=== PATIENT | female | born 1995 | race African-American/Black ===

== ENCOUNTER 2019-04-04 01:38 | Emergency (ER) | payer OTHER ==
--- OUTSIDE RECORDS SUMMARY | 2019-04-04 01:41 | XMS REPORT | Summary of Care ---
:1995 Author Organization [facility] Address [address] [place] [id number] Care Team Providers Name Role Phone Jeffrey Graves CARD LACER JACQUARD Primary Care Provider Reason for Referral (Routine) Status Reason Specialty Diagnoses / Referred By Referred To Procedures Contact Contact New Request Maternal Diagnoses Supervision of high risk , antepartum Jeffrey Graves Medicine Procedures CONSULT MATERNAL MEDICINE ULTRASOUND R, CARD LACER JACQUARD [address] [place] [address] Reason for Visit Reason Comments Initial Visit Encounter Details Date Type Department Care Team Description 03/29/2019 Initial [facility]- Jeffrey Graves Supervision of high risk , antepartum (Primary Dx); Visit Leti RJOSUE Multiparity; [address] [facility] [address] [facility] Encounter for removal of intrauterine contraceptive device; [place], [place] Delicia Presence of intrauterine contraceptive device; [id number] [place], [place] IUD [phone] [facility] [phone] Allergies No Known Allergiesdocumented as of this encounter (statuses as of 03/29/2019) Medications Medication Sig Dispensed Refills Start Date End Date Status vit Take 1 Packet 30 Each 6 03/29/2019 Active 51-uehs-xhwtj-dha by mouth (SELECT-OB + DHA) 29 daily. mg iron-1 mg -250 mg combo packIndications: Supervision of high risk , antepartum metroNIDAZOLE Take 1 tablet 14 tablet 0 06/27/2018 03/29/2019 Discontinued (FLAGYL) 500 mg by mouth 2 tabletIndications: (two) times BV (bacterial daily with vaginosis) meals. naproxen 375 mg Take 1 tablet 60 tablet 1 06/27/2018 03/29/2019 Discontinued tabletIndications: by mouth 2 Back strain, initial (two) times encounter daily with meals. clotrimazole-betamet Apply to 15 g 1 08/19/2018 03/29/2019 Discontinued hasone (LOTRISONE) area(s) 2 creamIndications: (two) times Vaginal itching daily. fluconazole Take 1 tablet 1 tablet 1 08/27/2018 03/29/2019 Discontinued (DIFLUCAN) 200 mg by mouth tabletIndications: daily. Vaginal itching metroNIDAZOLE 500 mg Take 1 tablet 14 tablet 0 02/24/2019 03/29/2019 Discontinued tabletIndications: by mouth 2 BV (bacterial (two) times vaginosis) daily. documented as of this encounter (statuses as of 03/29/2019) Active Problems Problem Noted Date Multiparity 03/29/2019 Presence of intrauterine contraceptive device 03/29/2019 IUD 03/29/2019 Over weight 02/24/2019 MRSA (methicillin resistant staph aureus) culture positive 11/03/2017 Oral contraceptive use 10/07/2017 Boils 07/10/2017 Sickle cell trait 05/30/2016 Supervision of high risk , antepartum 03/26/2016 Encounter for removal of intrauterine contraceptive device 01/26/2016 Asthma 04/15/2013 Overview: Last Asthma attack was 3 years ago. 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 Estimated Date of Delivery Comments Yes 12/01/2019 Based on last menstrual period of 02/24/2019 documented as of this encounter (statuses as of 03/29/2019) Resolved Problems Problem Noted Date Resolved Date Presence of of 13.5 mg levonorgestrel-releasing intrauterine 11/19/201703/29 device (IUD) BV (bacterial vaginosis) 10/03/2016 03/29/2019 Depo-Provera contraceptive status 09/27/2016 10/07/2017 39 weeks gestation of 06/11/2016 09/27/2016 Vaginal discharge during in third trimester 03/26/2016 09/27/2016 Preexisting hypertension complicating , antepartum 03/20/20162016 Nausea and vomiting during prior to 22 weeks 01/26/2016 09/27/2016 gestation High-risk supervision, second trimester 01/26/2016 03/26/2016 Vaginal discharge during in second trimester 01/26/2016 05/30/2016 Dysuria 01/26/2016 03/29/2019 High-risk 04/15/2013 09/27/2016 Overview: 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 documented as of this encounter (statuses as of 03/29/2019) Immunizations Name Administration Dates Next Due Influenza Virus Vaccine (3+ yrs) 04/15/2013 Influenza Virus Vaccine - Whole 08/28/2010 Influenza Virus Vaccine Quad IM 3+ YRS 04/23/2016 Rubella 08/28/2010 Td 07/21/2007 Tdap 03/26/2016 Varicella (varivax)(chicken pox) 08/28/2010 documented as of this encounter Social History Tobacco Use Types Packs/Day Years Used Date Never Smoker Smokeless Tobacco: Never Used Alcohol Use Drinks/Week oz/Week Comments No 0 Standard drinks or equivalent 0.0 Estimated Date of Delivery Comments Yes 12/01/2019 Based on last menstrual period of 02/24/2019 Sex Assigned at Date Recorded Not on file Job Start Date Occupation Industry Not on file Not on file Not on file Travel History Travel Start Travel End No recent travel history available. documented as of this encounter Last Filed Vital Signs Vital Sign Reading Time Taken Comments Blood Pressure 123/82 03/29/2019 2:35 PM CDT Pulse 61 03/29/2019 2:35 PM CDT Temperature 36.3 C (97.4 F) 03/29/2019 2:35 PM CDT Respiratory Rate 16 03/29/2019 2:35 PM CDT Oxygen Saturation - - Inhaled Oxygen Concentration - - Weight 74.6 kg (164 lb 7 oz) 03/29/2019 2:35 PM CDT Height 165.1 cm (5' 5") 03/29/2019 2:35 PM CDT Body Mass Index 27.36 03/29/2019 2:35 PM CDT documented in this encounter Progress Notes Jeffrey Graves, CARD LACER JACQUARD - 03/29/2019 2:00 PM CDT Chief complaint: Chief Complaint Patient presents with Initial Visit HPI CC: Initial Visit Yulisa Fowler is a 23 year old, , Black or female. Patient's last menstrual period was 02/24/2019. She is 4w5d with an intrauterine . Her Estimated Date of Delivery: 12/01/19. She is being seen today for her first obstetrical visit. She has no complaints today. Patient reports IUD in place since 2018. She denies , FM contractions, LOF and bleeding today. Patient denies current or past physical, sexual or emotional abuse. OB History Para Term AB Living 4 3 3 3 SAB TAB Ectopic Multiple Live Births 3 # Outcome Date GA Lbr Elroy/2nd Weight Sex Delivery Anes PTL Lv 4 Current 3 Term 06/11/16 39w2d 7 lb 6.5 oz (3.36 kg) F VAGINAL EPI IMAN 2 Term 11/26/13 38w1d 7 lb 11 oz (3.487 kg) M NORMAL SPONT None N IMAN 1 Term 02/20/11 40w0d 09:00 6 lb 12 oz (3.062 kg) M Vag-Forceps EPIDURAL IMAN Histories OB History Para Term AB Living 4 3 3 3 SAB TAB Ectopic Multiple Live Births 3 # Outcome Date GA Lbr Elroy/2nd Weight Sex Delivery Anes PTL Lv 4 Current 3 Term 06/11/16 39w2d 7 lb 6.5 oz (3.36 kg) F VAGINAL EPI IMAN 2 Term 11/26/13 38w1d 7 lb 11 oz (3.487 kg) M NORMAL SPONT None N IMAN 1 Term 02/20/11 40w0d 09:00 6 lb 12 oz (3.062 kg) M Vag-Forceps EPIDURAL IMAN Past Medical History: Diagnosis Date Asthma 2004 no inhaler, no asmtha attack in years PID (pelvic inflammatory disease) Chlamydia / past infection Preexisting hypertension complicating , antepartum 03/20/2016 STD (sexually transmitted disease) 2011 Hx of Chlamydia Family History Problem Relation Age of Onset Asthma Mother High cholesterol Maternal Grandmother Diabetes Maternal Grandfather Cancer Maternal Uncle Arthritis NoFHx defects NoFHx Breast Cancer NoFHx Colon Cancer NoFHx Ovarian Cancer NoFHx Uterine Cancer NoFHx Depression NoFHx Genetic NoFHx Heart NoFHx Hypertension NoFHx Mental retardation NoFHx Neurological NoFHx Osteoporosis NoFHx Psychiatry NoFHx Other - see comments NoFHx Family Status Relation Name Status Mo Alive Fa Alive MGMo Alive MGFa Alive MUnc Alive NoFHx (Not Specified) Past Surgical History: Procedure Laterality Date INJECT EPIDURAL ANEST,LUMB,CONTINOUS 06/11/2016 OBSTETRICAL CARE,VAG DELIV ONLY 06/11/2016 Social History Socioeconomic History Marital status: Single Spouse name: Not on file Number of children: 2 Years of education: 12 Highest education level: Not on file Occupational History 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 Social Needs Financial resource strain: Not on file Food insecurity: Worry: Not on file Inability: Not on file Transportation needs: Medical: Not on file Non-medical: Not on file Tobacco Use Smoking status: Never Smoker Smokeless tobacco: Never Used Substance and Sexual Activity Alcohol use: No Alcohol/week: 0.0 oz Drug use: No Sexual activity: Yes Partners: Male control/protection: IUD Comment: Last intercourse 03/27/2019 Lifestyle Physical activity: Days per week: Not on file Minutes per session: Not on file Stress: Not on file Relationships Social connections: Talks on phone: Not on file Gets together: Not on file Attends restorationist service: Not on file Active member of club or organization: Not on file Attends meetings of clubs or organizations: Not on file Relationship status: Not on file Intimate partner violence: Fear of current or ex partner: Not on file Emotionally abused: Not on file Physically abused: Not on file Forced sexual activity: Not on file Other Topics Concern Service Not Asked Blood Transfusions Not Asked Caffeine Concern Not Asked Occupational Exposure Not Asked Hobby Hazards Not Asked Sleep Concern Not Asked Stress Concern Not Asked Weight Concern Not Asked Special Diet Not Asked Back Care Not Asked Exercise Not Asked Bike Helmet Not Asked Seat Belt Yes Self-Exams Not Asked Social History Narrative Denies domestic or physical violence at home, lives with children only. Denies cats in the home Rastafari Preference: Druze Social History Substance and Sexual Activity Sexual Activity Yes Partners: Male control/protection: IUD Comment: Last intercourse 03/27/2019 Genetic Screen Autism / Mental Retardation: No Robert Disease: No Congenital Heart Defect: No Cystic Fibrosis: No Down Syndrome: No Familial Dysautonomia: No Hemophilia or other Blood Disorders: No Asif Chorea: No Maternal Metabolic Disorder--specify (eg. Type 1 Diabetes, PKU): No Muscular Dystrophy: No Neural Tube Defect: No Recurrent Loss or a Stillbirth: No Sickle Cell Disease or Trait: No Darci Sachs: No Teratological Substances (specify type & strength/dose) since LMP: No Thalassemia: No Other Inherited Genetic or Chromosomal Disorder (specify): No No Significant History of Genetic Disorders: No Significant History of Genetic Disorders Labs Labs are pending. Radiology Radiology pending. Allergies Yulisa has No Known Allergies. Medications Yulisa currently has no medications in their medication list. Review of Systems Constitutional: Negative for activity change, appetite change, fatigue, unexpected weight change, weight gain and weight loss. HENT: Negative for sore throat. Eyes: Negative for visual disturbance. Respiratory: Negative for cough and shortness of breath. Breasts: Negative for discharge, mass, pain and unequal size. Cardiovascular: Negative for chest pain, palpitations and leg swelling. Gastrointestinal: Negative. Negative for abdominal pain, anal bleeding, blood in stool, constipation, diarrhea, nausea, rectal pain and vomiting. Genitourinary: Negative for bladder incontinence, dysuria, urgency, flank pain, vaginal bleeding, vaginal discharge, genital sores, vaginal pain and pelvic pain. Skin: Negative for color change and rash. Neurological: Negative. Negative for dizziness, syncope and headaches. Psychiatric/Behavioral: Negative for confusion, self-injury and sleep disturbance. The patient is not nervous/anxious. Hematological: Negative for cold intolerance and heat intolerance. Endocrine: Negative for hair loss, cold intolerance, heat intolerance, weight gain and weight loss. BP 123/82 (BP Location: Right arm, Patient Position: Sitting, BP CUFF SIZE: Adult Medium) | Pulse 61 | Temp 36.3 C (97.4 F) (Oral) | Resp 16 | Ht 5 ' 5" (1.651 m) | Wt 164 lb 7 oz (74.6 kg) | LMP 02/24/2019 | BMI 27.36 kg/m Pregravid BMI: Could not be calculated Physical Exam Vitals reviewed. Constitutional: She is oriented to person, place, and time. She appears well- developed, well-nourished and well-groomed. She has no deformities. Neck: No tenderness and no mass. No thyroid nodules and no thyromegaly palpated. Cardiovascular: Regular rate and rhythm. No murmur auscultated. Pulmonary/Chest: Breath sounds clear to auscultation. Normal inspiratory effort. Abdominal: Abdomen is soft. No mass palpated. No tenderness present. There is no guarding. Neuro/Psychiatric: She has a normal mood and affect. She is oriented to person, place, and time. Skin: Skin normal. No lesion and no rash present. Breast: Right breast exhibits no mass, no nipple discharge and no tenderness. Left breast exhibits no mass, no nipple discharge and no tenderness. Normal left breast and normal right breast Rectal: normal rectum External genitalia: Normal external genitalia appropriate for age. Normal hair distribution. No labial lesion. [employer] Mill Tender present for the exam: Laine Monte RN Vagina:Normal vagina. No lesion inspected. No abnormal vaginal discharge found. Cervix: Normal cervix. No lesion. No tenderness and no discharge present. IUD strings noted Uterus: Uterus is normal size and non-tender. 6cm Normal uterus Adnexa: Right adnexa without tenderness or mass. Left adnexa without tenderness or mass. Normal leftadnexa and normal right adnexa Anus/perineum: Normal perineum. PHYSICAL: General Exam: HEENT: Normal Thyroid: Normal Lymph Node: Normal Neurological: Normal Abdomen: Normal Skin: Normal Extremities: Normal Pelvic Exam: Vulva: Normal Vagina: Normal Lead [employer] Mill Tender present for the exam: Laine Monte RN present, no bleeding noted Cervix: Normal closed Uterus: 6cm Weeks Adnexa: Normal Spines: Average Sacrum: Concave Subpubic Arch: Normal Assessment/Plan Supervision of high risk , antepartum (primary encounter diagnosis) Multiparity Comment: Routine Visit Plan: POCT TEST, POCT URINALYSIS W/O SPECIFIC GRAVITY, GLUCOSE 1 HOUR POST PRANDIAL, CBC WITH DIFF, GC & CHLAMYDIA AMPLIFIED ASSAY, HEPATITIS B SURFACE ANTIGEN, HIV 1/2 AG-AB WITH REFLEX, WORKUP, BLOOD BANK, RUBELLA SCREEN (RONI) IGG, GALV ONLY - SYPHILIS IGG/IGM, URINE CULTURE, VZV ANTIBODY SCREEN, CBC WITH DIFFERENTIAL, CONSULT MATERNAL MEDICINE ULTRASOUND, vit 52-ozce-pwnre-dha (SELECT-OB + DHA) 29 mg iron-1 mg -250 mg combo pack Denies zika virus risk, signs and symptoms such as fever,rash,joint pain, conjunctivitis (red eyes), muscle pain, headaches; outside [place] travel to areas affected by zika, and FOB exposure to zika.Educated on use of mosquito repellent. Encounter for removal of intrauterine contraceptive device Presence of intrauterine contraceptive device IUD Comment: IUD in place, removal approved by Cole Montero, IUD removed, no complaints, patient visualized IUD out Plan: Patient given warnings risk. Return to clinic in 4 weeks. Discussed treatment options. Medications as ordered. Reviewed patient instructions and provided printed copy. This visit did not involve counseling and coordination that comprised more than 50% of the visit time. JOSUE Gilliam 03/29/2019 3:47 PM Jeffrey Son FNP - 03/29/2019 2:00 PM CDTIUD REMOVAL PROCEDURE NOTE Preoperative Diagnoses: IUD Removal The risks, benefits and alternatives were discussed. The patient voiced her understanding. She wished to proceed and an informed consent was obtained. Patient has been identified by name and and will be undergoing IUD removal. Patient, procedure and site have been confirmed by the following clinicians: JOSUE Gilliam and Laine Monte RN . Timeout performed by JOSUE Gilliam at 3:26p.m. Procedure: The patient is placed on the exam table in a lithotomy position. Vaginal speculum inserted. The cervix and IUD strings are visualized. IUD strings are grasped with the ring forceps and firmpressure applied to deliver the IUD through the cervical os. The patient experienced no cramping during removal,which resolved spontaneously prior to discharge. The vaginal speculum was removed. The patient tolerated the procedure well and there were no complications. Post-procedure instructions given. Patient verbalized understanding. Findings/Assessment IUD removed without any complaints Approved removal by Dr.. Galvan. Plan Encounter for removal of intrauterine contraceptive device Presence of intrauterine contraceptive device IUD Comment: IUD removed approved by Dr. Galvan Plan: no , complaints, warnings given. Return to clinic in 4 weeks. Discussed treatment options. Medications as ordered. Reviewed patient instructions and provided printed copy. JOSUE Gilliam 03/29/2019 3:41 PM Reuben Ricks RN - 03/29/2019 2:00 PM CDTPatient to have IUD removed due to positive test. Informed consent signed and obtained, risks reviewed, patient verbalized understanding. REUBEN MONTE RN 03/29/2019 3:33 PM Reuben Ricks RN - 03/29/2019 2:00 PM CDTPatient is 23 year old female here for current . Patient is . 1) Previous delivery methods Vaginal term deliveries. 2) Patient is experiencing cramping since 03/22/2019. 3) Patient is experiencing bleeding. 4) LMP 02/24/2019 5) Last Pap was: 02/24/2019 Results: Negative 6) Have you had a flu vaccine this season? No 7) PPD candidate? No 8) Patient complains of cramping and light spotting since 03/22/2019. Per patient report she has a Kathie IUD inserted 11/19/[address] Up. 9) Patient Denies history of physical, emotional, or sexual abuse. Patient states she currently feels safe at home. New ob packet given and discussed with patient. REUBEN MONTE RN 03/29/2019 3:06 PM documented in this encounter Plan of Treatment Date Type Specialty Care Team Description 04/26/2019 Routine Visit OB Satellites Jeffrey Graves FNP [address] [place] [address] [phone] Name Type Priority Associated Diagnoses Order Schedule GLUCOSE 1 HOUR POST LAB Routine Supervision of high risk Ordered: 2018 PRANDIAL , antepartum CBC WITH DIFF LAB Routine Supervision of high risk Ordered: 03/29/2019 , antepartum GC & CHLAMYDIA AMPLIFIED LAB Routine Supervision of high risk Ordered: 03/2019 ASSAY , antepartum HEPATITIS B SURFACE LAB Routine Supervision of high risk Ordered: 2018 ANTIGEN , antepartum HIV 1/2 AG-AB WITH REFLEX LAB Routine Supervision of high risk Ordered: 03/2019 , antepartum WORKUP, BLOOD LAB Routine Supervision of high risk Ordered: 2018 BANK , antepartum RUBELLA SCREEN (RONI) IGG LAB Routine Supervision of high risk Ordered: , antepartum GALV ONLY - SYPHILIS LAB Routine Supervision of high risk Ordered: 2018 IGG/IGM , antepartum URINE CULTURE LAB Routine Supervision of high risk Ordered: 03/29/2019 , antepartum VZV ANTIBODY SCREEN LAB Routine Supervision of high risk Ordered: 2018 , antepartum CBC WITH DIFFERENTIAL LAB Routine Supervision of high risk Ordered: 2018 , antepartum Health Maintenance Due Date Last Done Comments HPV VACCINES (1 - Female 2008 3-dose series) VARICELLA VACCINES (2 of 2 - 09/25/2010 08/28/2010 13+ 2-dose series) INFLUENZA VACCINE (#1) 2019 04/23/2016, 04/15/2013, 08/28/2010 PAP SMEAR 02/24/2022 02/24/2019, 12/04/2017 DTaP,Tdap,and Td Vaccines (3 03/26/2026 03/26/2016, - Td) 07/21/2007 PNEUMOCOCCAL 0-64 YEARS Aged Out No longer eligible based COMBINED SERIES on patient's age to complete this topic documented as of this encounter Procedures Procedure Name Priority Date/Time Associated Diagnosis Comments POCT URINALYSIS W/O Routine 03/29/2019 2:45 Supervision of high Results for this SPECIFIC GRAVITY PM CDT risk , procedure are in antepartum the results section. POCT TEST Routine 03/29/2019 2:36 Supervision of high Results for this PM CDT risk , procedure are in antepartum the results section. documented in this encounter Results POCT URINALYSIS W/O SPECIFIC GRAVITY (03/29/2019 2:45 PM CDT) POCT PH U 5 5 - 8 mg/dl POCT U LEUK EST 1+ Negative - Negative POCT U NIT Neg Negative - Negative POCT U PROT Trace Negative - Negative POCT U GLU Neg Negative - Negative POCT U KETONE None Negative - Negative POCT U BLD 250 Negative - Negative Specimen Urine - URINE, CLEAN CATCH POCT TEST (03/29/2019 2:36 PM CDT) POCT PREG Positive On board controls acceptable Yes with C Line POCT PREG LOT # POCT PREG TEST DATE Specimen Urine - URINE, CLEAN CATCH documented in this encounter Visit Diagnoses Diagnosis Supervision of high risk , antepartum - Primary Multiparity Encounter for removal of intrauterine contraceptive device Presence of intrauterine contraceptive device IUD Other specified complication of , unspecified as to episode of care documented in this encounter documented as of this encounter
--- OUTSIDE RECORDS SUMMARY | 2019-04-04 01:41 | XMS REPORT | Summary of Care ---
:1995 Author Organization [facility] Address [address] [place] [id number] Care Team Providers Name Role Phone Mendy Adhikari Primary Care Provider Reason for Visit Reason Comments Well Woman Exam Encounter Details Date Type Department Care Team Description 02/24/[address] [facility]- Mendy Adhikari Well woman exam (Primary Dx); JUAN MANUEL Kelly IUD (intrauterine device) in place; [address] Over weight; [place], [place] SANT[place] A BV (bacterial vaginosis); [id number] [place] [address] Boil [phone] Allergies No Known Allergiesdocumented as of this encounter (statuses as of 02/24/2019) Medications Medication Sig Dispensed Refills Start Date End Date Status metroNIDAZOLE (FLAGYL) Take 1 tablet by 14 tablet 0 06/27/2018 Active 500 mg mouth 2 (two) tabletIndications: BV times daily with (bacterial vaginosis) meals. naproxen 375 mg Take 1 tablet by 60 tablet 1 06/27/2018 Active tabletIndications: Back mouth 2 (two) strain, initial times daily with encounter meals. clotrimazole-betamethaso Apply to 15 g 1 08/19/2018 Active ne (LOTRISONE) area(s) 2 (two) creamIndications: times daily. Vaginal itching fluconazole (DIFLUCAN) Take 1 tablet by 1 tablet 1 08/27/2018 Active 200 mg mouth daily. tabletIndications: Vaginal itching metroNIDAZOLE 500 mg Take 1 tablet by 14 tablet 0 02/24/2019 Active tabletIndications: BV mouth 2 (two) (bacterial vaginosis) times daily. documented as of this encounter (statuses as of 02/24/2019) Active Problems Problem Noted Date Over weight 02/24/2019 Presence of of 13.5 mg levonorgestrel-releasing intrauterine device (IUD) 08/2017 MRSA (methicillin resistant staph aureus) culture positive 11/03/2017 Oral contraceptive use 10/07/2017 Boils 07/10/2017 BV (bacterial vaginosis) 10/03/2016 Sickle cell trait 05/30/2016 Dysuria 01/26/2016 Asthma 04/15/2013 Overview: Last Asthma attack was 3 years ago. 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 Immune to rubella 04/15/2013 Immune to varicella 04/15/2013 Flu vaccine need 04/15/2013 Pain pelvic 04/15/2013 documented as of this encounter (statuses as of 02/24/2019) Resolved Problems Problem Noted Date Resolved Date Depo-Provera contraceptive status 09/27/2016 10/07/2017 39 weeks gestation of 06/11/2016 09/27/2016 Vaginal discharge during in third trimester 03/26/2016 09/27/2016 High-risk supervision, third trimester 03/26/2016 09/27/2016 Preexisting hypertension complicating , antepartum 03/20/20162016 Nausea and vomiting during prior to 22 weeks 01/26/2016 09/27/2016 gestation Sterilization consult 01/26/2016 09/27/2016 High-risk supervision, second trimester 01/26/2016 03/26/2016 Vaginal discharge during in second trimester 01/26/2016 05/30/2016 High-risk 04/15/2013 09/27/2016 Overview: 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 documented as of this encounter (statuses as of 02/24/2019) Immunizations Name Administration Dates Next Due Influenza [...] No 0 Standard drinks or equivalent 0.0 Sex Assigned at Date Recorded Not on file Job Start Date Occupation Industry Not on file Not on file Not on file Travel History Travel Start Travel End No recent travel history available. documented as of this encounter Last Filed Vital Signs Vital Sign Reading Time Taken Comments Blood Pressure 121/84 02/24/2019 2:02 PM CDT Pulse 79 02/24/2019 2:02 PM CDT Temperature 36.2 C (97.1 F) 02/24/2019 2:02 PM CDT Respiratory Rate 16 02/24/2019 2:02 PM CDT Oxygen Saturation - - Inhaled Oxygen Concentration - - Weight 76.4 kg (168 lb 8 oz) 02/24/2019 2:02 PM CDT Height 165.1 cm (5' 5") 02/24/2019 2:02 PM CDT Body Mass Index 28.04 02/24/2019 2:02 PM CDT documented in this encounter Patient Instructions Patient InstructionsReuben Monte RN - 02/24/2019 1:15 PM CDT Understanding STDs When it comes to sex, nothing is risk-free. Any sexual contact with the penis, vagina, anus, or mouth can spread a sexually transmitted disease (STD). The only sure way to prevent STDs is abstinence (not having sex). But there are ways to make sex safer. Use a latex condom each time you have sex. And choose your partner wisely. Use condoms for safer sex If you have sex, latex condoms provide the best protection against STDs. Latex condoms stop the exchange of body fluids that carry certain STDs. They also limit contact with affected skin. Be aware though, a condom doesnt cover all skin. So, affected skin that is not covered can still transfer disease. But you re safer with a condom than without one. Use a condom even if you use other control. While control methods like the pill or IUD help prevent , they do not protect against STDs. Choose the right condom Condoms made of latex prevent disease best. If youre allergic to latex, use polyurethane condoms instead. Male condoms fit over the penis. Female condoms line the vagina. Before buying a condom, read the label to be sure it prevents disease. Some novelty condoms dont. The right lubricant helps Buy lubricated condoms or use lubricant. This provides greater comfort and reduces the risk of condom breakage. Use only water-based lubricants. Dont use oil, lotion, or petroleum jelly. They can weaken the condom, causing breakage. Also, you may want to choose lubricants without nonoxynol-9. Its now known that this spermicide does not prevent disease and may cause irritation. Use condoms correctly For condoms to work, they must be used the right way. Keep these tips in mind: Use a new latex condom each time you have sex. Slip the condom on the penis before any contact ismade. When ready to withdraw, hold the rim of the condom as the penis pulls out. This prevents the condom from slipping off. Check the expiration date before using a condom. Dont store condoms in places that can get hot, such as a car or a wallet that is carried in a back pocket. Get to know your partner Safer sex is a process. It involves getting to know your partner and making informed choices. Ask each other how many partners you have had in the past, and how many you have now. Find out if either ofyou has an STD. If you decide to have sex, use a condom each time. Dont stop using condoms unlessyoure sure neither of you has other partners and youve both been tested to confirm you donthave STDs. Then stay free of disease by having sex only with each other (monogamy). Keep your cool Dont let alcohol or drugs cloud your judgment. They could lead you to have sex with someone you wouldnt have chosen if you were sober. Or, you might forget to use a condom. If you do plan to havesex, keep a latex condom with you. Dont wait until youre in the heat of passion to try to findone. Consider abstinence The only way to be sure you wont get an STD is to abstain from sex. Abstinence is a choice that many people make at some point in their lives. Maybe you want to wait until you are sure youre ready before you have sex. Maybe youd like a break from the responsibilities of sex for a while. Or maybe you just want to know your partner better before taking the next step. Abstinence is a choice youcan make now to protect your future. Date Last Reviewed: 06/20/201619998689-[address] [place] [address], [place] [address]. All rights reserved. This information is not intended as a substitute for professional medical care. Always follow your healthcare professional's instructions. Prevention Guidelines,Women Ages 18 to 39 Screening tests and vaccines are an important part of managing your health. A screening test is doneto find possible disorders or diseases in people who don' t have any symptoms. The goal is to find a disease early so lifestyle changes can be made and you can be watched more closely to reduce the riskof disease, or to detect it early enough to treat it most effectively. Screening tests are not considered diagnostic, but are used to determine if more testing is needed. Health counseling is essential, too. Below are guidelines for these, for women ages 18 to 39. Talk with your healthcare provider tomake sure youre up-to- date on what you need. Screening Who needs it How often Alcohol misuse All women in this age group At routine exams Blood pressure All women in this age group Yearly checkup if your blood pressure is normal Normal blood pressure is less than 120/80 mm Hg If your blood pressure reading is higher than normal, follow the advice of your healthcare provider Breast cancer All women in this age group should talk with their healthcare providers about the needfor clinical breast exams (CBE)1 Clinical breast exam every 3 years1 Cervical cancer Women ages 21 and older Women between ages 21 and 29 should have a Pap test every 3 years; women between ages 30 and 65 are advised to have a Pap test plus an HPV test every 5 years Chlamydia Sexually active women ages 25 and younger, and women at increased risk for infection (suchas having multiple sex partners) Every year if you're at risk or have symptoms Depression All women in this age group At routine exams Type 2 diabetes, prediabetes All women with no symptoms who are overweight or obese and have 1 or more other risk factors for diabetes At least every 3 years. Also, testing for diabetes during after the 24th week. Type 2 diabetes, prediabetes All women diagnosed with gestational diabetes Lifelong testing every 3 years Type 2 diabetes All women with prediabetes Every year Gonorrhea Sexually active women at increased risk for infection At routine exams Hepatitis C Anyone at increased risk At routine exams HIV All women should be tested at least once for HIV between the ages of 13 and 64 At routine exams.Those with risk factors for HIV should be tested at least annually. Obesity All women in this age group At routine exams Syphilis Women at increased risk for infection should talk with their healthcare provider At routineexams Tuberculosis Women at increased risk for infection should talk with their healthcare provider Ask your healthcare provider Vision All women in this age group At least 1 complete exam in your 20s, and 2 in your 30s Vaccine2 Who needs it How often Chickenpox (varicella) All women in this age group who have no record of this infection or vaccine 2doses; the second dose should be given 4 to 8 weeks after the first dose Hepatitis A Women at increased risk for infection should talk with their healthcare provider 2 dosesgiven at least 6 months apart Hepatitis B Women at increased risk for infection should talk with their healthcare provider 3 dosesover 6 months; second dose should be given 1 month after the first dose; the third dose should be given at least 2 months after the second dose and at least 4 months after the first dose Haemophilus influenzaeType B (HIB) Women at increased risk for infection should talk with their healthcare provider 1 to 3 doses Human papillomavirus (HPV) All women in this age group up to age 26 3 doses; the second dose should be given 1 to 2 months after the first dose and the third dose given 6 months after the first dose Influenza (flu) All women in this age group Once a year Measles, mumps, rubella (MMR) All women in this age group who have no record of these infections or vaccines 1 or 2 doses Meningococcal Women at increased risk for infection should talk with their healthcare provider 1 or more doses Pneumococcal conjugate vaccine (PCV13)and pneumococcal polysaccharide vaccine(PPSV23) Women at increased risk for infection should talk with their healthcare provider PCV13: 1 dose ages 19 to 65 (protects against 13 types of pneumococcal bacteria) PPSV23: 1 to2 doses through age 64, or 1 dose at 65 or older (protects against 23 types of pneumococcal bacteria) Tetanus/diphtheria/pertussis (Td/Tdap) booster All women in this age group Td every 10 years, or a one-time dose of Tdap instead of a Td booster after age 18 , then Td every 10 years Counseling Who needs it How often BRCA gene mutation testing for breast and ovarian cancer susceptibility Women with increased risk for having gene mutation When your risk is known Breast cancer and chemoprevention Women at high risk for breast cancer When your risk is known Diet and exercise Women who are overweight or obese When diagnosed, and then at routine exams Domestic violence Women at the age in which they are able to have children At routine exams Sexually transmitted infection prevention Women who are sexually active At routine exams Skin cancer Prevention of skin cancer in fair-skinned adults At routine exams Use of tobacco and the health effects it can cause All women in this age group Every visit 1 According to the ACS, women ages 20 to 39 years should have a clinical breast exam (CBE) as part of their routine health exam every 3 years. Breast self- exams are an option for women starting in their 20s.But the USPSTF does not recommend CBE. Date Last Reviewed: 04/20/201719991716-7254 [employer]. [address] [place] [address]. All rights reserved. This information is not intended as a substitute for professional medical care. Always follow your healthcare professional's instructions. Understanding HIV and AIDS If you know how HIV (human immunodeficiency virus) can get into your body and what happens once its there, youll be better prepared to protect yourself or others against this virus. A person withHIV can look and feel perfectly healthy. But that person can give HIV to others as soon as he or sheis infected with the virus. Note: Having unsafe or unprotected sex or sharing needles put you at risk for HIV. Talk with your healthcare provider about ways to protect yourself or a loved one from getting HIV. How HIV enters the body HIV is carried in semen, vaginal fluid, blood, and breast milk. During sex, HIV can enter the body through the fragile tissue that lines the vagina, penis, anus,and mouth. During drug use, tattooing, or body piercing, the virus can enter the bloodstream through a shared needle. A mother who has HIV can infect her child during childbirth and through . How HIV infection progresses After HIV enters the body, it attacks the immune system in stages. A person with HIV can infect others once the virus enters the bloodstream. HIV with no symptoms. A person with HIV may have no symptoms for years. A positive blood test for HIV antibodies 6 weeks to 6 months after HIV enters the body may be the only sign of infection. HIV with symptoms.Some people develop an illness similar to mononucleosis (or "mono") 2 to 4 weeksafter the virus enters the body. Symptoms may include swollen lymph glands, chills, fever, night sweats, weakness, weight loss, skin rashes, mouth ulcers, or sore throat. Symptoms may be mild at first and then slowly go away. In a very few individuals, symptoms may get progressively worse and last forlonger and longer periods. AIDS. AIDS is the last stage of HIV infection. Diseases and cancers begin to overcome the body. It is these diseases, not the virus itself, that cause . HIV may also attack the brain and nervous system, causing seizures and loss of memory and body movement. Date Last Reviewed: 05/21/201619993446-[address] [employer] [place] [address]. All rights reserved. This information is not intended as a substitute for professional medical care. Always follow your healthcare professional's instructions. Clinical Breast Exam Many health organizations recommend a yearly clinical breast exam. This exam may be done by a senior instrumentation engineer, family healthcare provider, nurse practitioner, nurse bilingual customer service, or specially trained nurse. Yearly breast exams help tomake surethat breast conditions are found early. Your healthcare providers role A healthcare professional knows the tests and follow-up care needed if a problem is found. Your clinical exam is also a great time to ask questions about breast self-exams. You can find out if yourechecking your breasts in the best way. Or you may want to ask how , breast implants, or breast reduction surgery affect the way you should check your breasts. Diagnostic tests If a clinical exam reveals a breast change, you may have other tests to find out more. These tests may include: Mammography. A low-dose X-ray of your breast tissue. Ultrasound. An imaging test that uses sound waves to create images of your breast. Biopsy. A small amount of breast tissue is removed by needle or by a cut ( incision). The tissue is then checked under a microscope. Guidelines for having clinical breast exams The [place] [employer] recommends that starting at age 29, you should have a clinical breast exam every 1 to 3 years. After age 40, have a clinical breast exam each year. If youre at higher risk for breast cancer, you may need exams more often. Risk factors for breast cancer may include: Being over 50 or postmenopausal Having a family history of breast cancer Having the BRCA1 or BRCA2 gene mutation or certain other gene mutations Having more menstrual periods due to starting menstruation early(before age 12) or having a late menopause (after age 55) Having no pregnancies Having a first after age 30 Being obese Having a history of radiation treatment to your chest area Exposure to FIDENCIO during your mother's Not being active Drinking too much alcohol Having dense breast tissue Taking hormone therapy after menopause Other health organizations have different recommendations. Talk with your healthcare provider about what is best for you. Date Last Reviewed: 02/18/201719996134-[address] [employer] [place] [address], [place] [address]. All rights reserved. This information is not intended as a substitute for professional medical care. Always follow your healthcare professional's instructions. Breast Health: Breast Self-Awareness What is breast self-awareness? Breast self-awareness is knowing how your breasts normally look and feel. Your breasts change as yougo through different stages of your life. So its important to learn what is normal for your breasts. Breast self-awareness helps you notice any changes in your breasts right away. Report any changesto your healthcare provider. Why is breast self-awareness important? Many experts now say that women should focus on breast self-awareness instead of doing a breast self-examination (BSE). These experts include the [place] [employer], the U.S. Preventive Services Task Force, and the [place] [employer]. Some experts even advise notteaching women to do a BSE. Thats because research hasnt shown a clear benefit to doing BSEs. Breast self-awareness is different than a BSE. Breast self-awareness isnt about following a certain method and schedule. Its about knowing what's normal for your breasts. That way you can notice even small changes right away. If you see any changes, report them to your healthcare provider. Changes to look for Call your healthcare provider if you find any changes in your breasts that concern you. These changes may include: A lump Nipple discharge other than breastmilk, especially a bloody discharge Swelling A change in size or shape Skin irritation, such as redness, thickening, or dimpling of the skin Swollen lymph nodes in the armpit Nipple problems, such as pain or redness If you find a lump Contact your provider if you find lumpiness in one breast, feel something different in the tissue, or feel a definite lump. Sometimes lumpiness may be due to menstrual changes. But there may be reason for concern. Your provider may want to see you right away if you have: Nipple discharge that is bloody Skin changes on your breast, such as dimpling or puckering Its normal to be upset if you find a lump. But its important to contact your provider right away. Remember that most breast lumps are benign. This means they are not cancer. Date Last Reviewed: 02/18/201719998080-2160 [employer]. [address] [place] [address], [place] [address]. All rights reserved. This information is not intended as a substitute for professional medical care. Always follow your healthcare professional's instructions. Understanding VIEO MyPlate The USDA (U.S. Department of Agriculture) has guidelines to help you make healthy food choices. These are called MyPlate. MyPlate shows the food groups that make up healthy meals using the image of a place setting. Before you eat, think about the healthiest choices for what to put onto your plate or into your cup or bowl. To learn more about building a healthy plate, visit www.choosemyplate.gov. The food groups Fruits. Any fruit or 100% fruit juice counts as part of the Fruit Group. Fruits may be fresh, canned, frozen, or dried, and may be whole, cut-up, or pureed. Make half your plate fruits and vegetables. Vegetables. Any vegetable or 100% vegetable juice counts as a member of the Vegetable Group. Vegetables may be fresh, frozen, canned, or dried. They can be served raw or cooked and may be whole, cut-up, or mashed. Make half your plate fruits and vegetables. Grains. All foods made from grains are part of the Grains Group. These include wheat, rice, oats,cornmeal, and barley such as bread, pasta, oatmeal, cereal, tortillas, and grits. Grains should be no more than a quarter of your plate. At least half of your grains should be whole grains. Protein. This group includes meat, poultry, seafood, beans and peas, eggs, processed soy products(like tofu), nuts (including nut butters), and seeds. Make protein choices no more than a quarter ofyour plate. Meat and poultry choices should be lean or low fat. Dairy. All fluid milk products and foods made from milk that contain calcium , like yogurt and cheese, are part of the Dairy Group. (Foods that have little calcium, such as cream, butter, and cream cheese, are not part of the group.) Most dairy choices should be low-fat or fat-free. Oils. These are fats that are liquid at room temperature. They include canola , corn, olive, soybean, and sunflower oil. Foods that are mainly oil include mayonnaise, certain salad dressings, and soft margarines. You should have only 5 to 7 teaspoons of oils a day. You probably already get this muchfrom the food you eat. Date Last Reviewed: 02/18/201719999803-9998 [employer] [address] [place] [address]. All rights reserved. This information is not intended as a substitute for professional medical care. Always follow your healthcare professional's instructions. Eating Heart-Healthy Foods Eating has a big impact on your heart health. In fact, eating healthier can improve several of your heart risks at once. For instance, it helps you manage weight, cholesterol, and blood pressure. Here are ideas to help you make heart- healthy changes without giving up allthe foods and flavors you love. Getting started Talk with your healthcare provider about eating plans, such as the DASH or Mediterranean diet. You may also be referred to a dietitian. Change a few things at a time. Give yourself time to get used to a few eating changes before adding more. Work to create a tasty, healthy eating plan that you can stick to for the rest of your life. Goals for healthy eating Below are some tips to improve your eating habits: Limit saturated fats and trans fats. Saturated fats raise your levels of cholesterol, so keep these fats to a minimum. They are found in foods such as fatty meats, whole milk, cheese, and palm and coconut oils. Avoid trans fats because they lower good cholesterol as well as raise bad cholesterol. Trans fats are most often found in processed foods. Reduce sodium (salt) intake. Eating too much salt may increase your blood pressure. Limit your sodium intake to 2,300 milligrams (mg) per day(the amount in 1 teaspoon of salt), or less if your healthcare provider recommends it. Dining out less often and eating fewer processed foods are two great ways to decrease the amount of salt you consume. Managing calories. A calorie is a unit of energy. Your body katz calories for fuel, but if you eat more calories than your body katz, the extras are stored as fat. Your healthcare provider can help you create a diet plan to manage your calories. This will likely include eating healthier foods as well as exercising regularly. To help you track your progress, keep a diary to record what you eat and how often you exercise. Choose the right foods Aim to make these foods suze of your diet. If you have diabetes, you may have different recommendations than what is listed here: Fruits and vegetables provide plenty of nutrients without a lot of calories. At meals, fill half your plate with these foods. Split the other half of your plate between whole grains and lean protein. Whole grains are high in fiber and rich in vitamins and nutrients. Good choices include whole-wheat bread, pasta, and brown rice. Lean proteins give you nutrition with less fat. Good choices include fish, skinless chicken, and beans. Low-fat or nonfat dairy provides nutrients without a lot of fat. Try low-fat or nonfat milk, cheese, or yogurt. Healthy fats can be good for you in small amounts. These are unsaturated fats , such as olive oil,nuts, and fish. Try to have at least 2 servings per week of fatty fish, such as salmon, sardines, mackerel, rainbow trout, and albacore tuna. These contain omega-3 fatty acids, which are good for your heart. Flaxseed is another source of a heart-healthy fat. More on heart-healthy eating Read food labels Healthy eating starts at the grocery store. Be sure to pay attention to food labels on packaged foods. Look for products that are high in fiber and protein, and low in saturated fat, cholesterol, and sodium. Avoid products that contain trans fat. And pay close attention to serving size. For instance, if you plan to eat two servings, double all the numbers on the label. Prepare food right A dotson part of healthy cooking is cutting down on added fat and salt. Look on the internet for lower-fat, lower-sodium recipes. Also, try these tips: Remove fat from meat and skin from poultry before cooking. Skim fat from the surface of soups and sauces. Broil, boil, bake, steam, grill, and microwave food without added fats. Choose ingredients that spice up your food without adding calories, fat, or sodium. Try these items: horseradish, hot sauce, lemon, mustard, nonfat salad dressings, and vinegar. For salt-free herbs and spices, try basil, cilantro, cinnamon, pepper, and lidia. Date Last Reviewed: 04/20/201719994814-[address] [place] [address], [place] [address]. All rights reserved. This information is not intended as a substitute for professional medical care. Always follow your healthcare professional's instructions. Levonorgestrel intrauterine device (IUD) Brand Names: Kyleena, LILETTA, Mirena, Kathie What is this medicine? LEVONORGESTREL IUD (MOODY voe nor kendrick trel) is a contraceptive ( control) device. The device is placed inside the uterus by a healthcare professional. It is used to prevent . This device can also be used to treat heavy bleeding that occurs during your period. How should I use this medicine? This device is placed inside the uterus by a health home care scheduler. Talk to your lieutenant colonel regarding the use of this medicine in children. Special care may be needed. What side effects may I notice from receiving this medicine? Side effects that you should report to your doctor or health home care scheduler as soon as possible: allergic reactions like skin rash, itching or hives, swelling of the face, lips, or tongue fever, flu-like symptoms genital sores high blood pressure no menstrual period for 6 weeks during use pain, swelling, warmth in the leg pelvic pain or tenderness severe or sudden headache signs of stomach cramping sudden shortness of breath trouble with balance, talking, or walking unusual vaginal bleeding, discharge yellowing of the eyes or skin Side effects that usually do not require medical attention (report to your doctor or health home care scheduler if they continue or are bothersome): acne breast pain change in sex drive or performance changes in weight cramping, dizziness, or faintness while the device is being inserted headache irregular menstrual bleeding within first 3 to 6 months of use nausea What may interact with this medicine? Do not take this medicine with any of the following medications: amprenavir bosentan fosamprenavir This medicine may also interact with the following medications: aprepitant armodafinil barbiturate medicines for inducing sleep or treating seizures bexarotene boceprevir griseofulvin medicines to treat seizures like carbamazepine, ethotoin, felbamate, oxcarbazepine, phenytoin, topiramate modafinil pioglitazone rifabutin rifampin rifapentine some medicines to treat HIV infection like atazanavir, efavirenz, indinavir, lopinavir, nelfinavir, tipranavir, ritonavir Britt's wort warfarin What if I miss a dose? This does not apply. Depending on the brand of device you have inserted, the device will need to be replaced every 3 to 5 years if you wish to continue using this type of control. Where should I keep my medicine? This does not apply. What should I tell my health care provider before I take this medicine? They need to know if you have any of these conditions: abnormal Pap smear cancer of the breast, uterus, or cervix diabetes endometritis genital or pelvic infection now or in the past have more than one sexual partner or your partner has more than one partner heart disease history of an ectopic or tubal immune system problems IUD in place liver disease or tumor problems with blood clots or take blood-thinners seizures use intravenous drugs uterus of unusual shape vaginal bleeding that has not been explained an unusual or allergic reaction to levonorgestrel, other hormones, silicone, or polyethylene, medicines, foods, dyes, or preservatives or trying to get breast-feeding What should I watch for while using this medicine? Visit your doctor or health home care scheduler for regular check ups. See your doctor if you or your partner has sexual contact with others, becomes HIV positive, or gets a sexual transmitted disease. This product does not protect you against HIV infection (AIDS) or other sexually transmitted diseases. You can check the placement of the IUD yourself by reaching up to the top of your vagina with clean fingers to feel the threads. Do not pull on the threads. It is a good habit to check placement after each menstrual period. Call your doctor right away if you feel more of the IUD than just the threads or if you cannot feel the threads at all. The IUD may come out by itself. You may become if the device comes out. If you notice that the IUD has come out use a backup control method like condoms and call your health care provider. Using tampons will not change the position of the IUD and are okay to use during your period. This IUD can be safely scanned with magnetic resonance imaging (MRI) only under specific conditions.Before you have an MRI, tell your healthcare provider that you have an IUD in place, and which type of IUD you have in place. NOTE:This sheet is a summary. It may not cover all possible information. If you have questions aboutthis medicine, talk to your doctor, pharmacist, or health care provider. Copyright 2018 [employer] Pap Does this test have other names? Pap smear, cervical cytology, Papanicolaou test, Pap smear test, vaginal smear technique What is this test? This test checks the cells from inside the cervix for any changes that could lead to cancer. The cervix is the lower part of a woman's uterus that opens into the vagina. This test is named after Ash Gutiérrez MD, one of the healthcare providers whodeveloped this technique of testing for cervical cancer. Why do I need this test? You may need this test as a screening test to look for cervical cancer or changes in cervical cells that might eventually lead to cancer. Major medical groups generally recommend that women get regularPap tests every 3 years starting at age 21. Getting a regular Pap test can be life-saving. Cervical cancer is one of the most serious types of cancer in women. If your test shows abnormal cells, your healthcare provider may be able to find and treat cervical problems right away, or stop cervical cancer before it becomes life-threatening. Pap tests can also diagnose serious infections and pelvic inflammation. What other tests might I have along with this test? You will likely have a pelvic exam along with this test. Depending on your age and other factors, your tissue samples may also be tested for human papillomavirus (HPV) infection at the same time your Pap test is done. Infection with some types of HPV puts you at risk for cervical cancer. If you have an abnormal Pap test result, your healthcare provider may order other tests. These may include: Colposcopy. Your cervix and vagina are looked at with a microscope called a colposcope, which magnifies any abnormal areas. Endocervical curettage. Cells are taken from the opening of your cervix with a spoon-shaped tool and looked at under a microscope. This may be done during the colposcopy. Biopsy. A small tissue sample is taken from your cervix and looked at under a microscope. This may be done during the colposcopy. What do my test results mean? Test results may vary depending on your age, gender, health history, the method used for the test, and other things. Your test results may not mean you have a problem. Ask your healthcare provider whatyour test results mean for you. Your results will either be normal or abnormal. If you get an abnormal result, this usually does notmean that you have cancer. It often means a minor cervical problem. Your healthcare provider may do another Pap test to confirm the initial results. Or he or she may recommend other tests such as colposcopy. Occasionally a lab test has a false-positive result. This means you do not have a cervical problem even though the test result shows you do. How is this test done? This test is done with a sample of cervical cells. For the test, you lie on your back with your knees bent and your feet in stirrups, then relax and spread your legs. As part of a pelvic exam, your healthcare provider first checks your vagina and reproductive organs for infections and health problems. Then yourprovider uses a device called a speculum to open the vagina. The provider examines your cervix and scrapes off a few cells from inside your cervix. Some women may have slight discomfort when the speculum is inserted. Does this test pose any risks? This test poses no known risks. What might affect my test results? Using vaginal lubricants, cleansers, contraceptives, or creams may mask your symptoms. Avoid using vaginal douches and abstain from sex for 2 days before an exam. Using these products or having sex maywash away or disguise abnormal cervical cells. How do I get ready for this test? It may seem like a good idea to wash up before having a Pap test, but this can actually erase the signs of a health problem. For accurate test results, avoid having sex or using tampons, douches, vaginal creams, deodorant sprays and powders, and contraceptive foams and jellies for 2 days before your exam. Don't have the test while you're menstruating. The ideal time to have a Pap test is 10 to 20 days after the first day of your last period. Be sure your healthcare provider knows about all medicines, herbs, vitamins, and supplements you aretaking. This includes medicines that don't need a prescription and any illicit drugs you may use. [id number] [employer]. [address] [place] [address], [place] [address]. All rights reserved. This information is not intended as a substitute for professional medical care. Always follow your healthcare professional's instructions. documented in this encounter Progress Notes Mendy Adhikari, WHCNP - 02/24/2019 1:15 PM CDT Chief complaint: Chief Complaint Patient presents with Well Woman Exam HPI: the patient is here today for WWE and contraceptive management. She reports she is doing well but states she has noticed some vaginal discharge for the past 3 weeks, associated symptoms include vaginal odor. She reports no new sexual partners, and she currently uses IUD for control. She agrees to STI testing today but declines the need for HIV testing today. Pt (denies) current or past physical, sexual or emotional abuse. Histories OB History Para Term AB Living 3 3 3 3 SAB TAB Ectopic Multiple Live Births 3 # Outcome Date GA Lbr Elroy/2nd Weight Sex Delivery Anes PTL Lv 3 Term 06/11/16 39w2d 7 lb 6.5 oz (3.36 kg) F VAGINAL EPI IMAN 2 Term 11/26/13 38w1d 7 lb 11 oz (3.487 kg) M NORMAL SPONT None N IMAN 1 Term 02/20/11 40w0d 09:00 6 lb 12 oz (3.062 kg) M Vag-Forceps EPIDURAL IMAN Past Medical History: Diagnosis Date Asthma Does not use inhailer PID (pelvic inflammatory disease) Chlamydia / past infection Preexisting hypertension complicating , antepartum 03/20/2016 STD (sexually transmitted disease) Hx of Chlamydia Family History Problem Relation Age of Onset Asthma Mother High cholesterol Maternal Grandmother Diabetes Maternal Grandfather Arthritis NoFHx defects NoFHx Breast Cancer NoFHx Colon Cancer NoFHx Ovarian Cancer NoFHx Uterine Cancer NoFHx Cancer NoFHx Depression NoFHx Genetic NoFHx Heart NoFHx Hypertension NoFHx Mental retardation NoFHx Neurological NoFHx Osteoporosis NoFHx Psychiatry NoFHx Other - see comments NoFHx Family Status Relation Name Status Mo Alive Fa Alive MGMo Alive MGFa Alive NoFHx (Not Specified) Past Surgical History: Procedure Laterality Date INJECT EPIDURAL ANEST,LUMB,CONTINOUS 06/11/2016 OBSTETRICAL CARE,VAG DELIV ONLY 06/11/2016 Social History Socioeconomic History Marital status: Single Spouse name: Not on file Number of children: 2 Years of education: 12 Highest education level: Not on file Occupational History 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 Social Needs Financial resource strain: Not on file Food insecurity: Worry: Not on file Inability: Not on file Transportation needs: Medical: Not on file Non-medical: Not on file Tobacco Use Smoking status: Never Smoker Smokeless tobacco: Never Used Substance and Sexual Activity Alcohol use: No Alcohol/week: 0.0 oz Drug use: No Sexual activity: Yes Partners: Male control/protection: IUD Comment: Last intercourse 02/10/2019 Lifestyle Physical activity: Days per week: Not on file Minutes per session: Not on file Stress: Not on file Relationships Social connections: Talks on phone: Not on file Gets together: Not on file Attends sabianist service: Not on file Active member of [...] children only. Denies cats in the home Confucianist Preference: Restorationist Social History Substance and Sexual Activity Sexual Activity Yes Partners: Male control/protection: IUD Comment: Last intercourse 02/10/2019 Labs No new labs, Labs are pending. and No visits with results within 3 Month(s) from this visit. Latest known visit with results is: Urgent Care on 06/27/2018 Component Date Value POCT U SP GRAV 06/27/2018 1.015 POCT PH U 06/27/2018 5 POCT U LEUK EST 06/27/2018 trace POCT U NIT 06/27/2018 negative POCT U PROT 06/27/2018 trace POCT U GLU 06/27/2018 negative POCT U KETONE 06/27/2018 negative POCT U UROBILI 06/27/2018 normal POCT U BILI 06/27/2018 negative POCT U BLD 06/27/2018 negative POCT U COLOR 06/27/2018 yellow POCT U APPEAR 06/27/2018 clear Radiology No new radiology. Allergies Yulisa has No Known Allergies. Medications Yulisa has a current medication list which includes the following prescription(s) : metronidazole, fluconazole, clotrimazole-betamethasone, metronidazole, and naproxen. Review of Systems Constitutional: Negative. HENT: Negative. Eyes: Negative. Respiratory: Negative. Breasts: Negative. Cardiovascular: Negative. Gastrointestinal: Negative. Genitourinary: Negative. Musculoskeletal: Negative. Skin: Negative. Neurological: Negative. Psychiatric/Behavioral: Negative. Endocrine: Endocrine negative BP 121/84 (BP Location: Right arm, Patient Position: Sitting, BP CUFF SIZE: Adult Medium) | Pulse 79 | Temp 36.2 C (97.1 F) (Oral) | Resp 16 | Ht 5 ' 5" (1.651 m) | Wt 168 lb 8 oz (76.4 kg) | LMP 01/18/2019 (Approximate) | BMI 28.04 kg/m Pregravid BMI: Could not be calculated Physical Exam Vitals reviewed. Constitutional: She is oriented to person, place, and time. She appears well- developed and well-nourished. Her body habitus is normal. Neck: No tenderness and no mass. No thyroid nodules and no thyromegaly palpated. No neck adenopathy. Cardiovascular: Regular rate and rhythm. No gallop, no friction rub and no murmur auscultated. No peripheral edema present. Pulmonary/Chest: Breath sounds clear to auscultation. Normal inspiratory effort. Abdominal: Abdomen is soft. No mass palpated. No tenderness present. There is no hepatosplenomegaly,splenomegaly or hepatomegaly. There is no rigidity. No hernia palpated or inspected. Neuro/Psychiatric: She has a normal mood and affect. She is oriented to person, place, and time. Skin: No lesion, no rash and no ulceration present. Lymphadenopathy: No neck adenopathy present. No axillary adenopathy present. No inguinal adenopathy present. Breast: Right breast exhibits no mass, no nipple discharge and no tenderness. Left breast exhibits no mass, no nipple discharge and no tenderness. Breasts are symmetrical. Normal left breast and normalright breast Rectal: Rectal exam with normal anal tone. No mass, no external hemorrhoid and no internal hemorrhoid palpated or inspected. External genitalia: Normal external genitalia appropriate for age. Normal hair distribution. No labial lesion. Urethral meatus: Normal urethral meatus size, location and no lesion. No prolapse present. Normal urethral meatus Urethra: Normal urethra. No urethral tenderness, no mass and no urethral scarring palpated. Bladder: Bladder has no fullness, no mass palpated and no tenderness. Normal bladder Vagina:No lesion inspected. Normal estrogen effect. Normal support. Vaginal discharge found. +clue cells, +whiff test, +vaginal discharge Cervix: Normal cervix. No lesion. No tenderness and no discharge present. IUD strings present Uterus: Uterus is normal size, normal contour, normal position and non-tender. Normal uterus Adnexa: Right adnexa without tenderness, ovary enlargement or mass. Left adnexa without tenderness, ovary enlargement or mass. Normal left adnexa and normal right adnexa Anus/perineum: Normal perineum and normal anus. Assessment/Plan Return to clinic in 1year for WWE or sooner as needed Rubella/VZV: immune BMI 28 Td 2016 Pap Smear; today Gardasil: pending Mammogram:na Guaiac:na Colonoscopy:na Well woman exam (primary encounter diagnosis) Comment: routine Plan: PAP Smear-Liquid Based, GC & CHLAMYDIA AMPLIFIED ASSAy IUD (intrauterine device) in place Comment: pleased Plan: as needed mgmt Over weight Comment: see bmi Plan: limit weight gain and sensible diet. BV (bacterial vaginosis) Comment: +clue cells, +whiff test, +vaginal discharge Plan: metroNIDAZOLE 500 mg tablet Boil Comment: reports Plan: comfort measures suggested This visit did not involve counseling and coordination that comprised more than 50% of the visit time. JUAN MANUEL Bower 02/24/2019 3:16 PM Reuben Ricks RN - 02/24/2019 1:15 PM CDT23 year old presents to the clinic for wwe. 1) Previous BCM: IUD Kathie 11/2017 2) Desired BCM: Satisfied with Kathie 3) LMP: 01/18/2019 4) Last Ebro: 02/10/2019 5) Last Pap: 2014 Results: Negative per patient report 6) Tdap: 2015 7) Gardasil: Pt declines 8) C/O: Foul smelling vaginal discharge. 9) Patient denies history of physical, emotional, or sexual abuse. Patient states that she currently feels safe at home. REUBEN MONTE RN 02/24/2019 2:12 PM documented in this encounter Plan of Treatment Name Type Priority Associated Diagnoses Date/Time PAP Smear-Liquid Based LAB Routine Well woman exam 02/24/2019 2:57 PM CDT GC & CHLAMYDIA AMPLIFIED LAB Routine Well woman exam 02/24/2019 2:57 PM CDT ASSAY Health Maintenance Due Date Last Done Comments PNEUMOCOCCAL 0-64 YEARS COMBINED 1999 SERIES (1 of 3 - PCV13) HPV VACCINES (1 - Female 3-dose 2008 series) VARICELLA VACCINES (2 of 2 - 13+ 09/25/2010 08/28/2010 2-dose series) INFLUENZA VACCINE 03/21/2019 04/23/2016, 04/15/2013, 08/28/2010 PAP SMEAR 12/04/2020 12/04/2017 DTaP,Tdap,and Td Vaccines (3 - Td) 03/26/2026 03/26/2016, 07/21/2007 documented as of this encounter Results Not on filedocumented in this encounter Visit Diagnoses Diagnosis Well woman exam - Primary Routine general medical examination at a health care facility IUD (intrauterine device) in place Presence of intrauterine contraceptive device Over weight Overweight BV (bacterial vaginosis) Vaginitis and vulvovaginitis, unspecified Boil Carbuncle and furuncle of unspecified site documented in this encounter documented as of this encounter
--- OUTSIDE RECORDS SUMMARY | 2019-04-04 01:41 | XMS REPORT | Summary of Care ---
:1995 Author Organization [facility] Address [address] [place] [address] Care Team Providers Name Role Phone Pcp, Patient Does Not Have A Primary Care Provider Encounter Details Date Type Department Care Team Description 02/24/2019 Orders Only [facility] Doctor Unassigned, No [address] [facility] [place] [address] [address] [place] [address] Allergies No Known Allergiesdocumented as of this [...] 200 mg mouth daily. tabletIndications: Vaginal itching documented as of this encounter (statuses as of 02/24/2019) Active Problems Problem Noted Date Presence of of 13.5 mg levonorgestrel-releasing intrauterine device (IUD) 08/2017 MRSA (methicillin resistant staph aureus) culture positive 11/03/2017 Oral contraceptive use 10/07/2017 Boils 07/10/2017 BV (bacterial vaginosis) 10/03/2016 Sickle cell trait 05/30/2016 Dysuria 01/26/2016 Asthma 04/15/2013 Overview: Last Asthma attack was 3 years ago. 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 documented as of this encounter [...] of this encounter Last Filed Vital Signs Not on filedocumented in this encounter Plan of Treatment Health Maintenance Due Date Last Done Comments PNEUMOCOCCAL 0-64 YEARS COMBINED 1999 SERIES (1 of 3 - PCV13) HPV VACCINES (1 - Female 3-dose 2008 series) VARICELLA VACCINES (2 of 2 - 13+ 09/25/2010 08/28/2010 2-dose series) INFLUENZA VACCINE 03/21/2019 04/23/2016, 04/15/2013, 08/28/2010 PAP SMEAR 12/04/2020 12/04/2017 DTaP,Tdap,and Td Vaccines (3 - Td) 03/26/2026 03/26/2016, 07/21/2007 documented as of this encounter Procedures Procedure Name Priority Date/Time Associated Diagnosis Comments NO SHOW OR MISSED Routine 02/24/2019 1:37 PM APPOINTMENT POLICY CDT ACKNOWLEDGEMENT documented in this encounter Results Not on filedocumented in this encounter Insurance Payer Benefit Plan Subscriber ID Effective Phone Address Type / Group Dates HEALTHY HEALTHY xxxxxxxxx 2019-Derian [phone] [place] [place] [id number] [place] [address] CIGNA CIGNA II [id number] 2012-Derian HMO/PPO/POS nt documented as of this encounter
--- OUTSIDE RECORDS SUMMARY | 2019-04-04 01:41 | XMS REPORT | Summary of Care ---
:1995 Author Organization [facility] Address [address] [place] [address] Care Team Providers Name Role Phone Mendy Adhikari Primary Care Provider Reason for Visit Reason Comments Well Woman Exam Encounter Details Date Type Department Care Team Description 02/24/2019 Office Visit [facility]- Mendy Adhikari Well woman exam (Primary Dx); JUAN MANUEL Kelly IUD (intrauterine device) in place; [address] [place] [address] Over weight; [place], [place] SANTANA A BV (bacterial vaginosis); [address] [place] [address] Boil [phone] Allergies No Known Allergiesdocumented as of this [...] was 3 years ago. ICD10 Diagnosis Term Coffee Shop Aide Utility Immune to rubella 04/15/2013 Immune to [...] High-risk 04/15/2013 09/27/2016 Overview: ICD10 Diagnosis Term Coffee Shop Aide Utility Nausea & vomiting 04/15/2013 09/27/2016 Lump or mass in breast 04/15/2013 01/26/2016 Overview: Will refer to [facility] for evaluation. documented as of this [...] to protect your future. Date Last Reviewed: 06/20/201619998683-[address] [employer] [place] [address], [place] [address]. All rights reserved. This information is not [...] does not recommend CBE. Date Last Reviewed: 04/20/201719998451-6332 [employer]. [address] [place] [address]. All rights reserved. This information is not [...] memory and body movement. Date Last Reviewed: 05/21/201619996733-[address] [employer] [place] [address]. All rights reserved. This information is not intended as a substitute for professional medical care. Always follow your healthcare professional's instructions. Clinical Breast Exam Many health organizations recommend a yearly clinical breast exam. This exam may be done by a show host or hostess, family healthcare provider, nurse practitioner, nurse doll maker, or specially trained nurse. Yearly breast exams [...] Guidelines for having clinical breast exams The [employer]st[employer]ians [employer] Gynec[employer] recommends that [...] is best for you. Date Last Reviewed: 02/18/201719991412-[address] [employer] [place] [address], [place] [address]. All rights reserved. This information is not [...] breast self-examination (BSE). These experts include the [place] [employer], the U.S. Preventive Services Task Force, and the [place] [employer] of Obstetricians and Gynecologists. Some experts [...] they are not cancer. Date Last Reviewed: 02/18/201719998471-7876 [employer]. [address] [place] [address], [place] [address]. All rights reserved. This information is not intended as a substitute for professional medical care. Always follow your healthcare professional's instructions. Understanding [facility] My[employer]ate The USDA (U.S. Department of Agriculture) [...] the food you eat. Date Last Reviewed: 02/18/201719997397-2055 [employer]. [address] [place] [address]. All rights reserved. This information is not [...] cinnamon, pepper, and lidia. Date Last Reviewed: 04/20/201719996174-[address] [employer] [place] [address], [place] [address]. All rights reserved. This information is not [...] placed inside the uterus by a health foster care therapist. Talk to your lobster catcher regarding the use of this medicine in children. Special care may be needed. What side effects may I notice from receiving this medicine? Side effects that you should report to your doctor or health foster care therapist as soon as possible: allergic reactions like [...] attention (report to your doctor or health foster care therapist if they continue or are bothersome): acne [...] this medicine? Visit your doctor or health foster care therapist for regular check ups. See your doctor [...] pharmacist, or health care provider. Copyright 2018 [employer] Pap Does this test have other names? [...] and any illicit drugs you may use. [phone] [employer]. [address] [place] [address], [place] [address]. All rights reserved. 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 Denies cats in the home Adventist Preference: Congregation Social History Substance and Sexual Activity Sexual [...] with Kathie 3) LMP: 01/18/2019 4) Last [place]: 02/10/2019 5) Last Pap: 2014 Results: Negative [...]
--- OUTSIDE RECORDS SUMMARY | 2019-04-04 01:42 | XMS REPORT | Summary of Care ---
:1995 Author Organization [facility] Address [address] [place] [address] Care Team Providers Name Role Phone Jeffrey Graves Primary Care Provider Reason for Referral Radiology Services (Routine) Status Reason Specialty Diagnoses / Referred By Referred To Procedures Contact Contact New Request Diagnostic Diagnoses Lump or mass in breast Star, Radiology Procedures BI ULTRASOUND BREAST COMPLETE LEFT JOSUE Miles [address] [place] [address] (Routine) Status Reason Specialty Diagnoses / Referred By Referred To Procedures Contact Contact New Request Maternal Diagnoses Supervision of high risk , antepartum Jeffrey Graves Medicine Procedures CONSULT MATERNAL MEDICINE ULTRASOUND JOSUE Ferro [address] [place] [address] Reason for Visit Reason Comments Initial Visit Encounter Details Date Type Department Care Team Description [facility] Supervision of high risk , antepartum (Primary Dx); Visit JOSUE Cook Multiparity; [address] [place] [address] [facility] Encounter for removal of intrauterine contraceptive device; [place], [place] Delicia Presence of intrauterine contraceptive device; [address] [place], [place] IUD ; [phone] Lump or mass in breast [phone] Allergies No Known Allergiesdocumented as of this encounter (statuses as of 03/29/2019) Medications Medication Sig Dispensed Refills Start Date End Date Status vit Take 1 Packet 30 Each 6 03/29/2019 Active 72-ytyp-utdaa-dha by mouth (SELECT-OB + DHA) 29 daily. [...] was 3 years ago. 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 Denies cats in the home Tenriism Preference: Synagogue Social History Substance and Sexual Activity Sexual Activity Yes Partners: Male control/protection: IUD Comment: Last intercourse 03/27/2019 Genetic Screen Autism / Mental Retardation: No Robert Disease: No Congenital Heart Defect: No Cystic Fibrosis: No Down Syndrome: No Familial Dysautonomia: No Hemophilia or other Blood Disorders: No [place] Chorea: No Maternal Metabolic Disorder--specify (eg. Type [...] discharge and no tenderness. Left breast exhibits mass. Left breast exhibits no nipple discharge and no tenderness. Left Breast mass noted at 7 O'Clock, pain with palpation Normal left breast and normal right breast Rectal: normal rectum External genitalia: Normal external genitalia appropriate for age. Normal hair distribution. No labial lesion. Type Mapper present for the exam: Laine Monte RN [...] Normal Pelvic Exam: Vulva: Normal Vagina: Normal Type Mapper present for the exam: Laine Monte RN [...] WITH DIFFERENTIAL, CONSULT MATERNAL MEDICINE ULTRASOUND, vit 47-scni-qljjq-dha (SELECT-OB + DHA) 29 mg iron-1 mg [...] IUD out Plan: Patient given warnings risk. Lump or mass in breast Comment: left breast mass noted at 7 O'Clock on exam, pain with palpated, Plan: BI ULTRASOUND BREAST COMPLETE LEFT Return to clinic in 4 weeks. Discussed [...] Description 04/26/2019 Routine Visit [facility] Jeffrey Graves, MAINTENANCE ASSOCIATE [address] [place] [address] [phone] Name Type Priority Associated Diagnoses Date/Time GLUCOSE 1 HOUR POST LAB Routine Supervision of high risk 03/29/2019 3:44 PM PRANDIAL , antepartum CDT CBC WITH DIFF LAB Routine Supervision of high risk 03/29/2019 3:44 PM , antepartum CDT GC & CHLAMYDIA AMPLIFIED LAB Routine Supervision of high risk 03/29/2019 4 :26 PM ASSAY , antepartum CDT HEPATITIS B SURFACE LAB Routine Supervision of high risk 03/29/2019 3:44 PM ANTIGEN , antepartum CDT HIV 1/2 AG-AB WITH REFLEX LAB Routine Supervision of high risk 03/29/2019 3:44 PM , antepartum CDT RUBELLA SCREEN (RONI) LAB Routine Supervision of high risk 03/29/2019 3: 44 PM IGG , antepartum CDT GALV ONLY - SYPHILIS LAB Routine Supervision of high risk 03/29/2019 3:44 PM IGG/IGM , antepartum CDT URINE CULTURE LAB Routine Supervision of high risk 03/29/2019 4:26 PM , antepartum CDT VZV ANTIBODY SCREEN LAB Routine Supervision of high risk 03/29/2019 3:44 PM , antepartum CDT CBC WITH DIFFERENTIAL LAB Routine Supervision of high risk 03/29/2019 3: 44 PM , antepartum CDT Name Type Priority Associated Diagnoses Order Schedule WORKUP, BLOOD LAB Routine Supervision of high risk Ordered: 2018 BANK , antepartum BI ULTRASOUND BREAST IMAGING Routine Lump or mass in breast Expected: 03/29, COMPLETE LEFT Expires: 05/29/2020 Health Maintenance Due Date Last Done Comments [...] , unspecified as to episode of care Lump or mass in breast documented in this encounter documented as of this encounter
--- OUTSIDE RECORDS SUMMARY | 2019-04-04 01:42 | XMS REPORT | Summary of Care ---
:1995 Author Organization [facility] Address [address] [place] [address] Care Team Providers Name Role Phone Jeffrey Graves [facility] Primary Care Provider Reason for Visit Reason Comments Assessment Talk To Nurse Encounter Details Date Type Department Care Team Description 04/02/2019 Telephone [facility]- Jeffrey Graves, Assessment; Talk To [facility] Nurse [address] [facility] [address] [place] [phone] Allergies No Known Allergiesdocumented as of this encounter (statuses as of 04/02/2019) Medications Medication Sig Dispensed Refills Start Date End Date Status vit Take 1 Packet by 30 Each 6 03/29/2019 Active 52-gbzu-dibat-dha mouth daily. (SELECT-OB + DHA) 29 mg iron-1 mg -250 mg combo packIndications: Supervision of high risk , antepartum documented as of this encounter (statuses as of 04/02/2019) Active Problems Problem Noted Date Multiparity 03/29/2019 [...] was 3 years ago. ICD10 Diagnosis Term Website Developer Utility Rubella immune 04/15/2013 Overview: Address in PP visit. Estimated Date of Delivery Comments Yes 12/01/2019 Based on last menstrual period of 02/24/2019 documented as of this encounter (statuses as of 04/02/2019) Resolved Problems Problem Noted Date Resolved Date [...] High-risk 04/15/2013 09/27/2016 Overview: ICD10 Diagnosis Term Website Developer Utility Immune to varicella 04/15/2013 03/29/2019 Flu vaccine need 04/15/2013 03/29/2019 Nausea & vomiting 04/15/2013 09/27/2016 Pain pelvic 04/15/2013 03/29/2019 Lump or mass in breast 04/15/2013 01/26/2016 Overview: Will refer to [facility] for evaluation. documented as of this encounter (statuses as of 04/02/2019) Immunizations Name Administration Dates Next Due Influenza [...] filedocumented in this encounter Plan of Treatment Date Type Specialty Care Team Description 04/06/2019 Appointment Radiology Jeffrey Graves, HORTICULTURE SUPERINTENDENT [address] [place] [address] [phone] 04/26/2019 Routine Visit [facility] Jeffrey Graves, HORTICULTURE SUPERINTENDENT [address] [place] [address] [phone] 05/06/2019 Treatment Supervisor Visit Maternal Medicine Health Maintenance Due Date Last Done Comments HPV VACCINES (1 - Female 2008 3-dose series) INFLUENZA VACCINE (#1) 2019 04/23/2016, 04/15/2013, 08/28/2010 PAP SMEAR 02/24/2022 02/24/2019, 12/04/2017 DTaP,Tdap,and Td Vaccines (3 03/26/2026 03/26/2016, - Td) 07/21/2007 PNEUMOCOCCAL 0-64 YEARS Aged Out No longer eligible based COMBINED SERIES on patient's age to complete this topic documented as of this encounter Results Not on filedocumented in this encounter Insurance Payer Benefit Plan Subscriber ID Effective Phone Address Type / Group Dates CIGARABELLA CIGARABELLA II [id number] 2012-Prese HMO/PPO/POS nt MEDICAID MEDICAID PENDING 2019-Prese [address] [place] [address] [place] [address] documented as of this encounter
--- OUTSIDE RECORDS SUMMARY | 2019-04-04 01:42 | XMS REPORT | Summary of Care ---
:1995 Author Organization [facility] Address [address] [place] [address] Care Team Providers Name Role Phone Jeffrey Graves JOSUE Primary Care Provider Encounter Details Date Type Department Care Team Description 03/29/2019 Orders Only [facility] Doctor Unassigned, No [address] [facility] Name [place] [id number] [address] [facility] [place] [phone] Allergies No Known Allergiesdocumented as of this encounter (statuses as of 03/29/2019) Medications Medication Sig Dispensed Refills Start Date End Date Status vit Take 1 Packet by 30 Each 6 03/29/2019 Active 50-ssit-hzzcm-dha mouth daily. (SELECT-OB + DHA) 29 mg [...] was 3 years ago. ICD10 Diagnosis Term Qc Manager Utility Estimated Date of Delivery Comments Yes [...] High-risk 04/15/2013 09/27/2016 Overview: ICD10 Diagnosis Term Qc Manager Utility Immune to rubella 04/15/2013 03/29/2019 Immune to varicella 04/15/2013 03/29/2019 Flu vaccine need 04/15/2013 03/29/2019 Nausea & vomiting 04/15/2013 09/27/2016 Pain pelvic 04/15/2013 03/29/2019 Lump or mass in breast 04/15/2013 01/26/2016 Overview: Will refer to [facility] for evaluation. documented as of this [...] 04/26/2019 Routine Visit [facility] Jeffrey Graves, CAROUSEL ATTENDANT [address] [place] [address] [phone] Health Maintenance Due Date Last Done Comments [...] Procedure Name Priority Date/Time Associated Diagnosis Comments REPORT OF Routine 03/29/2019 12:01 AM CDT documented in this encounter Results Not on filedocumented in this encounter Insurance Payer Benefit Plan Subscriber ID Effective Phone Address Type / Group Dates LEV OHARA II [id number] 2012-Prese HMO/PPO/POS nt MEDICAID MEDICAID PENDING 2019-Pres[address] [place] [address] documented as of this encounter
--- OUTSIDE RECORDS SUMMARY | 2019-04-04 01:42 | XMS REPORT | Summary of Care ---
:1995 Author Organization [facility] Address [address] [place] [address] Care Team Providers Name Role Phone Jeffrey Graves Primary Care Provider Reason for Referral Radiology Services (Routine) Status Reason Specialty Diagnoses / Referred By Referred To Procedures Contact Contact New Request Diagnostic Diagnoses Lump or mass in breast Star, Radiology Procedures BI ULTRASOUND BREAST COMPLETE LEFT JOSUE Miles [address] [place] [address] (Routine) Status Reason Specialty Diagnoses / Referred By Referred To Procedures Contact Contact New Request Maternal Diagnoses Supervision of high risk , antepartum Jeffrey Graves Medicine Procedures CONSULT MATERNAL MEDICINE ULTRASOUND JOSUE Ferro [address] [place] [address] Reason for Visit Reason Comments Initial Visit Encounter Details Date Type Department Care Team Description [facility] Supervision of high risk , antepartum (Primary Dx); Visit JOSUE Cook Multiparity; [address] [place] [address] [facility] Encounter for removal of intrauterine contraceptive device; [place], [place] Delicia Presence of intrauterine contraceptive device; [address] [place], [place] IUD ; [phone] Lump or mass in breast [phone] Allergies No Known Allergiesdocumented as of this encounter (statuses as of 03/29/2019) Medications Medication Sig Dispensed Refills Start Date End Date Status vit Take 1 Packet 30 Each 6 03/29/2019 Active 42-wepc-wjakn-dha by mouth (SELECT-OB + DHA) 29 daily. [...] was 3 years ago. 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 Denies cats in the home Gnosticism Preference: Rastafarian Social History Substance and Sexual Activity Sexual Activity Yes Partners: Male control/protection: IUD Comment: Last intercourse 03/27/2019 Genetic Screen Autism / Mental Retardation: No Robert Disease: No Congenital Heart Defect: No Cystic Fibrosis: No Down Syndrome: No Familial Dysautonomia: No Hemophilia or other Blood Disorders: No [place] Chorea: No Maternal Metabolic Disorder--specify (eg. Type [...] age. Normal hair distribution. No labial lesion. School Lunch Monitor present for the exam: Laine Monte RN [...] Normal Pelvic Exam: Vulva: Normal Vagina: Normal School Lunch Monitor present for the exam: Laine Monte RN [...] WITH DIFFERENTIAL, CONSULT MATERNAL MEDICINE ULTRASOUND, vit 37-hjns-zrgth-dha (SELECT-OB + DHA) 29 mg iron-1 mg [...] 04/26/2019 Routine Visit [facility] Jeffrey Graves, NETWORK CONTROL OPERATORS SUPERVISOR [address] [place] [address] [phone] Name Type Priority Associated Diagnoses Date/Time GLUCOSE [...]
--- OUTSIDE RECORDS SUMMARY | 2019-04-04 01:42 | XMS REPORT | Summary of Care ---
:1995 Author Organization [facility] Address [address] [place] [address] Care Team Providers Name Role Phone Jeffrey Graves Primary Care Provider Reason for Referral Radiology Services (Routine) Status Reason Specialty Diagnoses / Referred By Referred To Procedures Contact Contact New Request Diagnostic Diagnoses Lump or mass in breast Star, Radiology Procedures BI ULTRASOUND BREAST COMPLETE LEFT JOSUE Miles [address] [place] [address] (Routine) Status Reason Specialty Diagnoses / Referred By Referred To Procedures Contact Contact New Request Maternal Diagnoses Supervision of high risk , antepartum Jeffrey Graves Medicine Procedures CONSULT MATERNAL MEDICINE ULTRASOUND JOSUE Ferro [address] [place] [address] Reason for Visit Reason Comments Initial Visit Encounter Details Date Type Department Care Team Description 03/[facility] Supervision of high risk , antepartum (Primary Dx); Visit JOSUE Cook Multiparity; [address] [place] [address] [facility] Encounter for removal of intrauterine contraceptive device; [place], [place] Delicia Presence of intrauterine contraceptive device; [address] [place], [place] IUD ; [phone] Lump or mass in breast [phone] Allergies No Known Allergiesdocumented as of this encounter (statuses as of 03/29/2019) Medications Medication Sig Dispensed Refills Start Date End Date Status vit Take 1 Packet 30 Each 6 03/29/2019 Active 51-ydrk-zjbfi-dha by mouth (SELECT-OB + DHA) 29 daily. [...] was 3 years ago. 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 Denies cats in the home Methodist Preference: Buddhist Social History Substance and Sexual Activity Sexual Activity Yes Partners: Male control/protection: IUD Comment: Last intercourse 03/27/2019 Genetic Screen Autism / Mental Retardation: No Robert Disease: No Congenital Heart Defect: No Cystic Fibrosis: No Down Syndrome: No Familial Dysautonomia: No Hemophilia or other Blood Disorders: No [place] Chorea: No Maternal Metabolic Disorder--specify (eg. Type [...] age. Normal hair distribution. No labial lesion. Home Health Clinical Supervisor present for the exam: Laine Monte RN [...] Normal Pelvic Exam: Vulva: Normal Vagina: Normal Home Health Clinical Supervisor present for the exam: Laine Monte RN [...] WITH DIFFERENTIAL, CONSULT MATERNAL MEDICINE ULTRASOUND, vit 25-osls-uxtxb-dha (SELECT-OB + DHA) 29 mg iron-1 mg [...] 04/26/2019 Routine Visit [facility] Jeffrey Graves, FERRULER [address] [place] [address] [phone] Name Type Priority Associated Diagnoses Order Schedule GLUCOSE 1 HOUR POST LAB Routine Supervision of high Ordered: 03/29/2019 PRANDIAL risk , antepartum CBC WITH DIFF LAB Routine Supervision of high Ordered: 03/29/2019 risk , antepartum GC & CHLAMYDIA AMPLIFIED LAB Routine Supervision of high Ordered: 2018 ASSAY risk , antepartum HEPATITIS B SURFACE LAB Routine Supervision of high Ordered: 03/29/2019 ANTIGEN risk , antepartum HIV 1/2 AG-AB WITH REFLEX LAB Routine Supervision of high Ordered: 2018 risk , antepartum WORKUP, BLOOD LAB Routine Supervision of high Ordered: 03/29/2019 BANK risk , antepartum RUBELLA SCREEN (RONI) LAB Routine Supervision of high Ordered: 03/29/2019 IGG risk , antepartum GALV ONLY - SYPHILIS LAB Routine Supervision of high Ordered: 03/29/2019 IGG/IGM risk , antepartum URINE CULTURE LAB Routine Supervision of high Ordered: 03/29/2019 risk , antepartum VZV ANTIBODY SCREEN LAB Routine Supervision of high Ordered: 03/29/2019 risk , antepartum CBC WITH DIFFERENTIAL LAB Routine Supervision of high Ordered: 03/29/2019 risk , antepartum BI ULTRASOUND BREAST IMAGING Routine Lump or mass in breast Expected: COMPLETE LEFT 03/29/2019, Expires: 05/29/2020 Health Maintenance Due Date Last [...]
--- OUTSIDE RECORDS SUMMARY | 2019-04-04 01:43 | XMS REPORT ---
:1995 Author Organization [facility] Address [address] [place] [address] [address] [place] [address] Care Team Providers Name Role Phone Unavailable Unavailable Unavailable Problems This patient has no known problems. Allergies, Adverse Reactions, Alerts This patient has no known allergies or adverse reactions. Medications This patient has no known medications.
[2019-04-04 02:56] LABS: Absolute Lymphocytes (CBC) 1.9 K/uL (0.7-4.9); Basophils % 0.3 % (0-1.3); Lymphocytes % 24.2 % (15.3-44.8); RBC Red Blood Cell Count 4.58 M/uL (3.86-4.86)
--- NOTE | 2019-04-04 04:09 | ER ---
Nurse's Notes [facility] Name: Yulisa Fowler Age: 23 yrs Sex: Female : 1995 Arrival Date: 04/04/2019 Time: 01:41 Bed 5 Private MD: Diagnosis: Threatened Presentation: 04/04 02:10 Presenting complaint: Patient states: I went to my OB on the Mar and was told I tl1 was and they took out my IUD. I have been spotting since then but tonight I noticed bright red blood and have cramping on my left side. I was told I was 4 weeks at that time. Transition of care: patient was not received from another setting of care. Onset of symptoms was April 04, 2019. Risk Assessment: Do you want to hurt yourself or someone else? Patient reports no desire to harm self or others. Initial Sepsis Screen: Does the patient meet any 2 criteria? No. Patient's initial sepsis screen is negative. Does the patient have a suspected source of infection? No. Patient's initial sepsis screen is negative. Care prior to arrival: None. 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 - Social history:: Smoking status: Patient/guardian denies using tobacco, Patient/guardian denies using alcohol, street drugs. - Ebola Screening: : Patient negative for fever greater than or equal to 101.5 degrees Fahrenheit, and additional compatible Ebola Virus Disease symptoms Patient denies exposure to infectious person Patient denies travel to an Ebola-affected area in the 21 days before illness onset. - Family history:: not pertinent. - Hospitalizations: : No recent hospitalization is reported. Screenin:34 Abuse screen: Denies threats or abuse. Denies injuries from another. Nutritional tl1 screening: No deficits noted. Tuberculosis screening: No symptoms or risk factors identified. Fall Risk IV access (20 points). Assessment: 02:42 Obstetrical Assessment: General assessment: awake and alert, Patient reports abdominal tl1 cramping. General: Appears in no apparent distress. Behavior is calm, cooperative, appropriate for age. Pain: Complains of pain in left lower quadrant Pain currently is 3 out of 10 on a pain scale. Quality of pain is described as crampy, Pain began 4 hours ago. Neuro: Level of Consciousness is awake, alert, obeys commands, Oriented to person, place, time, situation. Cardiovascular: No deficits noted. Respiratory: Airway is patent Trachea midline Respiratory effort is even, unlabored, Respiratory pattern is regular, symmetrical, Breath sounds are clear bilaterally. GI: Bowel sounds present X 4 quads. Abd is soft Abdomen is tender to palpation in left lower quadrant Reports lower abdominal pain, cramping. : Reports vaginal bleeding that is bright red, since today. 04:25 Reassessment: No changes from previously documented assessment. Patient and/or family tl1 updated on plan of care and expected duration. Pain level reassessed. Patient is alert, oriented x 3, equal unlabored respirations, skin warm/dry/pink. Patient states feeling better. : Reports vaginal bleeding that is spotty. Vital Signs: 02:12 BP 130 / 90; Pulse 84; Resp 17; Pulse Ox 100% ; Weight 74.39 kg; Height 5 ft. 5 in. tl1 (165.10 cm); Pain 3/10; 03:09 BP 128 / 98; Pulse 82; Resp 17; Pulse Ox 100% ; tl1 04:07 BP 120 / 89; Pulse 84; Resp 17; Pulse Ox 100% on R/A; Pain 0/10; tl1 02:12 Body Mass Index 27.29 (74.39 kg, 165.10 cm) tl1 Vitals: 04:25 Heart Tones not applicable patient less then 6 weeks . tl1 ED Course: 01:41 Patient arrived in ED. ag3 01:58 Suleiman Valdez MD is Attending Physician. rn 02:10 Tabby Vora RN is Primary Nurse. tl1 02:12 Triage completed. tl1 02:13 Arm band placed on right wrist. tl1 02:13 Patient has correct armband on for positive identification. Placed in gown. Bed in low tl1 position. Call light in reach. Side rails up X 1. 02:34 No provider procedures requiring assistance completed. Inserted saline lock: 20 gauge tl1 in right antecubital area, using aseptic technique. Blood collected. 04:08 IV discontinued, intact, bleeding controlled, No redness/swelling at site. Pressure tl1 dressing applied. Administered Medications: No medications were administered Point of Care Testing: Urine : 04:26 hCG Reading: Positive; tl1 Outcome: 04:09 Discharge ordered by . rn 04:25 Discharged to home ambulatory. tl1 04:25 Condition: good 04:25 Discharge instructions given to patient, Instructed on discharge instructions, follow up and referral plans. Demonstrated understanding of instructions, follow-up care. 04:26 Patient left the ED. tl1 Signatures: Suleiman Valdez MD MD rn Lasagna, Tonya, RN RN tl1 Ev Brewer ag3
--- NOTE | 2019-04-04 04:10 | EDPHYS ---
Physician Documentation [facility] Name: Yulisa Fowler Age: 23 yrs Sex: Female : 1995 Arrival Date: 04/04/2019 Time: 01:41 Bed 5 Private MD: ED Physician Suleiman Valdez HPI: 04/04 02:24 This 23 yrs old Black Female presents to ER via Ambulatory with complaints of Vaginal rn Bleeding, + Preg <12wks. 02:24 The patient presents to the emergency department with vaginal bleeding, described as rn spotting. The estimated gestational age is 5 weeks. course: care: at a clinic, private OB physician, Leakage of Fluid: none appreciated, Ultrasound: the patient has not had an ultrasound. Associated signs and symptoms: Pertinent positives: vaginal bleeding. The patient has not experienced similar symptoms in the past. Reports , approx 5 weeks, had IUD removed after recent positive preg test, no u/s performed, reports mild left abd pain and spotting. No trauma. No other complaints. . 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 - Social history:: Smoking status: Patient/guardian denies using tobacco, Patient/guardian denies using alcohol, street drugs. - Ebola Screening: : Patient negative for fever greater than or equal to 101.5 degrees Fahrenheit, and additional compatible Ebola Virus Disease symptoms Patient denies exposure to infectious person Patient denies travel to an Ebola-affected area in the 21 days before illness onset. - Family history:: not pertinent. - Hospitalizations: : No recent hospitalization is reported. ROS: 02:24 Constitutional: Negative for fever, chills, and weight loss, Eyes: Negative for injury, rn pain, redness, and discharge, Neck: Negative for injury, pain, and swelling, Cardiovascular: Negative for chest pain, palpitations, and edema, Respiratory: Negative for shortness of breath, cough, wheezing, and pleuritic chest pain, Abdomen/GI: + lower abd pain Back: Negative for injury and pain, : + vaginal bleeding MS/Extremity: Negative for injury and deformity, Skin: Negative for injury, rash, and discoloration, Neuro: Negative for headache, weakness, numbness, tingling, and seizure. Exam: 02:24 Constitutional: This is a well developed, well nourished patient who is awake, alert, rn and in no acute distress. Ambulatory to bathroom without difficulty or assistance. Head/Face: Normocephalic, atraumatic. ENT: MMM Cardiovascular: Regular rate and rhythm. No pulse deficits. Respiratory: No increased work of breathing, no retractions or nasal flaring. Abdomen/GI: soft, non-tender MS/ Extremity: Pulses equal, no cyanosis. Neurovascular intact. Full, normal range of motion. Equal circumference. Neuro: Awake and alert, GCS 15, oriented to person, place, time, and situation. Cranial nerves II-XII grossly intact. Motor strength 5/5 in all extremities. Sensory grossly intact. Cerebellar exam normal. Normal gait. Vital Signs: 02:12 BP 130 / 90; Pulse 84; Resp 17; Pulse Ox 100% ; Weight 74.39 kg; Height 5 ft. 5 in. tl1 (165.10 cm); Pain 3/10; 03:09 BP 128 / 98; Pulse 82; Resp 17; Pulse Ox 100% ; tl1 04:07 BP 120 / 89; Pulse 84; Resp 17; Pulse Ox 100% on R/A; Pain 0/10; tl1 02:12 Body Mass Index 27.29 (74.39 kg, 165.10 cm) tl1 MDM: 01:58 Patient medically screened. rn 04:03 Differential diagnosis: ectopic . 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 Counseling: I had a detailed discussion with the patient and/or guardian regarding: the historical points, exam findings, and any diagnostic results supporting the discharge/admit diagnosis, lab results, radiology results, the need for outpatient follow up, to return to the emergency department if symptoms worsen or persist or if there are any questions or concerns that arise at home. Special discussion: I discussed with the patient/guardian in detail that at this point there is no indication for admission to the hospital. It is understood, however, that if the symptoms persist or worsen the patient needs to return immediately for re-evaluation. Based on the history and exam findings, there is no indication for further emergent testing or inpatient evaluation. I discussed with the patient/guardian the need to see the OB Gyne specialist for further evaluation of the symptoms. ED course: Waiting on u/s images to be posted for review, but per report, IUP, no ectopic. RH+. Neg UA. Will dc home with OB f/u.. 04:09 ED course: U/S shows 5w5d IUP.. rn 04/04 02:08 Order name: Quantitative Hcg rn 04/04 02:08 Order name: Abo/rh Typing rn 04/04 02:08 Order name: Basic Metabolic Panel 04/04 02:08 Order name: CBC with Diff 04/04 02:33 Order name: Urine Dipstick--Ancillary (enter results) [facility] 04/04 02:33 Order name: Urine --Ancillary (enter results) [facility] 04/04 02:08 Order name: Urine Test (obtain specimen); Complete Time: 02:33 04/04 02:08 Order name: IV Saline Lock; Complete Time: 02: 04/04 02:08 Order name: Labs collected and sent; Complete Time: 02: 04/04 02:08 Order name: NPO; Complete Time: 02: 04/04 02:08 Order name: Urine Dipstick-Ancillary (obtain specimen); Complete Time: 02:34 04/04 02:08 Order name: US Transvaginal Ob 04/04 03:05 Order name: CBC with Automated Diff; Complete Time: 04:03 EDMS 04/04 03:48 Order name: ABO/RH typing; Complete Time: 04:03 EDMS Administered Medications: No medications were administered Point of Care Testing: Urine : 04:26 hCG Reading: Positive; tl1 Disposition: 04/04/19 04:09 Discharged to Home. Impression: Threatened . - Condition is Stable. - Discharge Instructions: Threatened Miscarriage, Vaginal Bleeding During , First Trimester. - Medication Reconciliation Form, Thank You Letter, Antibiotic Education, Prescription Opioid Use form. - Follow up: Private Physician; When: As needed; Reason: Recheck today's complaints, Re-evaluation by your physician. - Problem is an ongoing problem. - Symptoms have improved. Signatures: Dispatcher [employer] EDMS Suleiman Valdez MD MD rn Lasagna, Tonya, RN RN tl1 Corrections: (The following items were deleted from the chart) 04:26 04:09 04/04/2019 04:09 Discharged to Home. Impression: Threatened . Condition tl1 is Stable. Forms are Medication Reconciliation Form, Thank You Letter, Antibiotic Education, Prescription Opioid Use. Follow up: Private Physician; When: As needed; Reason: Recheck today's complaints, Re-evaluation by your physician. Problem is an ongoing problem. Symptoms have improved. rn
[2019-04-04 04:29] LABS: BUN Blood Urea Nitrogen 10 mg/dL (7-18); Bicarbonate 26 mmol/L (21-32); Glucose Level 86 mg/dL (74-106); HCG, Quantitative 8534 mIU/mL (1-3); Potassium 3.5 mmol/L (3.5-5.1); Sodium Level 141 mmol/L (136-145)
[2019-04-04 04:44] VITALS: O2SAT 100
[2019-04-04 04:47] VITALS: BP 120/89
[2019-04-04 05:32] LABS: Urine Blood 2+ (NEG); Urine Glucose NEGATIVE (NEG); Urine Protein NEGATIVE (NEG); Urine Specific Gravity 1.025 (1.005-1.030); Urine pH 5.5 (5.0-7.0)
--- NOTE | 2019-04-04 11:53 | RAD REPORT ---
EXAM DESCRIPTION: US - Transvaginal OB - 04/04/2019 4:05 am CLINICAL HISTORY: VAGINAL BLEEDING COMPARISON: <Comparisons> FINDINGS: A single gestational sac is seen within the uterus. The shape of the sac is within normal limits for gestational age. Within the sac is a single pole with crown-rump length of 3 mm, cor relating to estimated gestational age of 5 weeks 6 days. Estimated date of delivery is 11/30/2019. Heart rate is 86 BPM. Small 8 mm subchorionic bleed is present. The placenta is not yet developed due to early gestational age. The maternal adnexa and ovaries are within normal limits. Normal Doppler blood flow was demonstrated to both ovaries. IMPRESSION: Single live early intrauterine gestation with estimated gestational age of 5 weeks 6 day s, RANDOLPH 11/30/2019. 8 mm subchorionic bleed.
== END 2019-04-04 04:26 | disposition home or self-care (01) ==
LOC: ER 01:38
DX: O20.0 Threatened abortion (principal); Z3A.01 Less than 8 weeks gestation of pregnancy
CPT/HCPCS: 36415; 76817; 80048; 81003; 81025; 84702; 85025; 86900; 86901; 99284

== ENCOUNTER 2025-03-09 20:59 | Emergency (ER) | payer OTHER, SELFPAY ==
--- OUTSIDE RECORDS SUMMARY | 2025-03-09 21:06 | XMS REPORT | Continuity of Care Document ---
Author Name Unknown Address [address] [facility]. [address] [place] [address] Organization [facility] Address [address] [facility]. [address] [place] [address] Care Team Providers Care Carpenter Assistant Installer Name Role Phone Pcp, Patient Does Not Have A Primary Care Physic catherine YOUNG SÁNCHEZ Attending Clinician Unavailable Phyllis Osman DNP Attending Clinician [phone] PHYLLIS OSMAN Attending Clinician Unavailable Doctor Unassigned, [place] Attending Clinician U navailable Doctor Unassigned, [place] Attending Clinician U navailYOMI Laughlin Attending Clinician Unavailable Young Sánchez MD Attending Clinician [phone] Wilmer CAMPO Attending Clinician Unavailable Wilmer Henderson Attending Clinician [phone] Briana Ludwig MD Attending Clinician + [phone] Wilton Weems NP Attending Clinician Unava ilWILTON Carter Attending Clinician Unavaila EDER Hall Attending Clinician Unavailable Eder Mercado PA-C Attending Clinician [phone] Del Villalobos DO Attending Clinician [phone] Only, [facility] Attending Clinician Unavailable ESPINOZA THAKUR Attending Clinician Unavailable Reyna Bhakta RN Attending Clinician Unavailable 2, [facility] Attending Clinician Unavailable Himanshu Raymond RN Attending Clinician Unavail able Pob, [facility] Main Attending Clinician Unavailabdi Brand RN, Adrienne Chaves Attending Clinician eJffrey Jacobs Attending Clinician [phone] Mendy Salazar Attending Clinician + YOUNG SÁNCHEZ Admitting Clinician Unavailable Young Sánchez MD Admitting Clinician [phone] Payers Payer Name Policy Type Policy Number Effective Date Expirati on Date Source [employer] MEDICAID [id number] 2019 00:00:00 Problems Condition Name Condition Details Condition Category Status Onset Date Resolution Date Last Treatment Date Treating Clinician Comments Source Hidradenit is Hidradenit is Disease Active 03-20 00:00: 00 [facility] Hidradenit is suppurativ a Hidradenit is suppurativ a Disease Active 03-20 00:00: 00 [facility] Tubal ligation status Tubal ligation status Disease Active -28 00:00: 00 [facility] Essential hypertensi on Essential hypertensi on Disease Active 5-04 00:00: 00 [facility] Obesity (BMI 30-39.9) Obesity (BMI 30-39.9) Disease Active 3-11 00:00: 00 [facility] Multiparit y Multiparit y Disease Active 9-09 00:00: 00 [facility] BMI 26.0-26.9, adult BMI 26.0-26.9, adult Disease Active 8-07 00:00: 00 [facility] MRSA (methicill in resistant staph aureus) culture positive MRSA (methicill in resistant staph aureus) culture positive Disease Active 4-16 00:00: 00 [facility] Sickle cell trait Sickle cell trait Disease Active 2015-07 1-10 00:00: 00 [facility] Asthma Asthma Disease Active 9- 00:00: 00 Overview: Formattin g of this note might be different from the original. Last Asthma attack was 3 years ago. ICD10 Diagnosis Term [employer] Utility [facility] Trichomona s vaginalis (TV) infection Trichomona s vaginalis (TV) infection Disease Resolve d 2023-0 3-21 00:00: 00 2023-11-04 00:00:00 2023-11-04 08:42:00 [facility] Infection due to Mycoplasma genitalium Infection due to Mycoplasma genitalium Disease Resolve d 2023-0 3-21 00:00: 00 2023-11-04 00:00:00 2023-11-04 08:42:02 [facility] Screen for sexually transmitte d diseases Screen for sexually transmitte d diseases Disease Resolve d 2019-0 6-17 00:00: 00 2023-11-04 00:00:00 2023-11-04 08:41:58 Overview: Formattin g of this note might be different from the original. Added automatic ally from request for surgery [id number] [facility] Vaginal discharge Vaginal discharge Disease Resolve d 9-06 00:00: 2023-11-04 00:00:00 2023-11-04 08:42:04 [facility] Routine follow-up Routine follow-up Disease Resolve d 0 -28 00:00: 00 2020-01-06 00:00:00 2020-01-06 03:12:54 [facility] Normal labor Normal labor Disease Resolve d 2019-0 5-04 00:00: 00 2019-12-16 00:00:00 2019-12-16 22:21:35 [facility] Liveborn infant, of downs , born in hospital by vaginal delivery Liveborn infant, of downs , born in hospital by vaginal delivery Disease Resolve d 2019-0 5-04 00:00: 00 2019-12-16 00:00:00 2019-12-16 22:21:32 [facility] History of forceps delivery in prior , currently History of forceps delivery in prior , currently Disease Resolve d 2018-0 9-24 00:00: 00 2019-12-16 00:00:00 2019-12-16 22:21:38 [facility] High risk , antepartum High risk , antepartum Disease Resolve d 2016-0 9-06 00:00: 00 2019-12-16 00:00:00 2019-12-16 22:21:44 [facility] Rubella immune Rubella immune Disease Resolve d 2012-0 9-26 00:00: 00 2019-12-16 00:00:00 2019-12-16 22:21:51 [facility] 31 weeks gestation of 31 weeks gestation of Disease Resolve d 2019-0 1-02 00:00: 00 2019-10-13 00:00:00 2019-10-13 09:23:46 [facility] Bleeding in early Bleeding in early Disease Resolve d 2018-0 9-16 00:00: 00 2019-10-06 00:00:00 2019-10-06 15:33:10 [facility] Presence of intrauteri ne contracept kenyetta device Presence of intrauteri ne contracept kenyetta device Disease Resolve d 2018-0 9-09 00:00: 00 2019-10-06 00:00:00 2019-10-06 15:33:06 [facility] IUD IUD Disease Resolve d 2018-0 9-09 00:00: 00 2019-10-06 00:00:00 2019-10-06 15:33:07 [facility] Encounter for removal of intrauteri ne contracept kenyetta device Encounter for removal of intrauteri ne contracept kenyetta device Disease Resolve d 2016-0 7-08 00:00: 00 2019-10-06 00:00:00 2019-10-06 15:32:55 [facility] Oral contracept kenyetta use Oral contracept kenyetta use Disease Resolve d 2018-0 3-20 00:00: 00 2019-04-05 00:00:00 2019-04-05 13:37:01 [facility] Boils Boils Disease Resolve d 2017-1 2-21 00:00: 00 2019-04-05 00:00:00 2019-04-05 13:37:02 [facility] Presence of of 13.5 mg levonorges trel-relea sing intrauteri ne device (IUD) Presence of of 13.5 mg levonorges trel-relea sing intrauteri ne device (IUD) Disease Resolve d 5-02 00:00: 00 2019-03-29 00:00:00 2019-03-29 15:36:33 [facility] BV (bacterial vaginosis) BV (bacterial vaginosis) Disease Resolve d 3-16 00:00: 00 2019-03-29 00:00:00 2019-03-29 15:15:05 [facility] Dysuria Dysuria Disease Resolve d 01-25 00:00: 00 2019-03-29 00:00:00 2019-03-29 15:15:06 [facility] Immune to varicella Immune to varicella Disease Resolve d 04-15 00:00: 00 2019-03-29 00:00:00 2019-03-29 15:36:27 [facility] Flu vaccine need Flu vaccine need Disease Resolve d 04-15 00:00: 00 2019-03-29 00:00:00 2019-03-29 15:36:13 [facility] Pain pelvic Pain pelvic Disease Resolve d 04-15 00:00: 00 2019-03-29 00:00:00 2019-03-29 15:15:07 [facility] Flu vaccine need Flu vaccine need Disease Resolve d 04-15 00:00: 00 2019-03-29 00:00:00 2019-03-29 15:36:13 [facility] Depo-Prove ra contracept kenyetta status Depo-Prove ra contracept kenyetta status Disease Resolve d 09-27 00:00: 00 2017-10-07 00:00:00 2017-10-07 17:00:56 [facility] 39 weeks gestation of 39 weeks gestation of Disease Resolve d 2015-07 1-22 00:00: 00 2016-09-27 00:00:00 2019-11-22 05:43:43 [facility] Preexistin g hypertensi on complicati ng , antepartum Preexistin g hypertensi on complicati ng , antepartum Disease Resolve d 8-31 00:00: 00 2016-09-27 00:00:00 2016-09-27 16:25:10 [facility] Nausea and vomiting during prior to 22 weeks gestation Nausea and vomiting during prior to 22 weeks gestation Disease Resolve d 01-25 00:00: 00 2016-09-27 00:00:00 2016-09-27 16:24:54 [facility] Nausea and vomiting during prior to 22 weeks gestation Nausea and vomiting during prior to 22 weeks gestation Disease Resolve d 01-25 00:00: 00 2016-09-27 00:00:00 2016-09-27 16:24:54 [facility] High-risk High-risk Disease Resolve d 04-15 00:00: 00 2016-09-27 00:00:00 2022-02-03 00:26:40 [facility] Nausea & vomiting Nausea & vomiting Disease Resolve d 04-15 00:00: 00 2016-09-27 00:00:00 2016-09-27 16:24:59 [facility] Vaginal discharge during in second trimester Vaginal discharge during in second trimester Disease Resolve d 01-25 00:00: 00 2016-05-30 00:00:00 2016-05-30 15:51:02 [facility] High-risk supervisio n, second trimester High-risk supervisio n, second trimester Disease Resolve d 01-25 00:00: 00 2016-03-26 00:00:00 2016-03-26 12:16:40 [facility] Lump or mass in breast Lump or mass in breast Disease Resolve d 04-15 00:00: 00 2016-01-26 00:00:00 2022-02-03 00:26:40 [facility] Allergies, Adverse Reactions, Alerts Allergy Name Allergy Type Status Severity Reaction(s) Onset Date Inactive Date Treating Clinician Comments Source NO KNOWN ALLERGIE S Drug Class Active [facility] Social History Social Habit Start Date Stop Date Quantity Comments Source [facility] History of Occupation [facility] Alcoholic beverage intake 2024-11-23 00:00:00 2024-11-23 00:00:00 0 /d [facility] Alcohol intake 2023-11-04 00:00:00 2023-11-04 00:00:00 0 /d [facility] Tobacco use and exposure 2023-03-20 00:00:00 2023-03-20 00:00:00 Smokeless tobacco non-user [facility] Exposure to SARS-CoV-2 (event) 2021-05-05 00:00:00 2021-06-04 08:01:00 Not sure [facility] History of Social function 2020-01-11 00:00:00 2020-01-11 00:00:00 [facility] Sex assigned at 1995 00:00:00 1995 00:00:00 [facility] Smoking Status Start Date Stop Date Source Never smoked tobacco [facility] Medications Ordered Medication Name Filled Medication Name Start Date Stop Date Current Medication? Ordering Clinician Indication Dosage Frequency Signature (SIG) Comments Components Source doxycycline monohydrate 100 mg capsule 11-24 00:00: 00 12-02 04:59 :00 No [id number] 100mg Take 1 capsule by mouth in the morning and 1 capsule in the evening. Do all this for 7 days. [facility] clindamycin 1 % gel 11-23 00:00: 00 Yes [id number] Apply to area(s) 2 (two) times daily. [facility] clindamycin 300 mg capsule 11-23 00:00: 00 12-01 04:59 :00 No [id number] 300mg Take 1 capsule by mouth in the morning and 1 capsule in the evening. Do all this for 7 days. [facility] doxycycline monohydrate 100 mg capsule 03-15 00:00: 00 03-23 04:59 :00 No [id number] 100mg Take 1 capsule by mouth in the morning and 1 capsule in the evening. Do all this for 7 days. [facility] metroNIDAZO LE 0.75 % (37.5mg/5 gram) vaginal gel 03-15 00:00: 00 03-21 04:59 :00 No [id number] 1{appli cator} Insert 1 Applicator into vagina at bedtime for 5 days. [facility] nystatin-tr iamcinolone cream 8- 00:00: 00 Yes [id number] Apply to area(s) 3 (three) times daily. [facility] metroNIDAZO LE (FLAGYL) 500 mg tablet -18 00:00: 00 11-23 00:00 :00 No [id number] 500mg Take 1 tablet by mouth every 12 (twelve) hours. [facility] nystatin-tr iamcinolone cream 11-03 00:00: 00 11-09 04:59 :00 No [id number] Apply to area(s) 3 (three) times daily for 5 days. To vulva area [facility] terconazole 80 mg vaginal suppository 16 00:00: 00 11-07 04:59 :00 No [id number] 80mg Insert 1 Suppositor y into vagina at bedtime for 3 days. [facility] fluconazole 150 mg tablet 10-21 00:00: 00 11-03 00:00 :00 No [id number] Take one tablet PO today, then repeat in 72 hours [facility] fluconazole 150 mg tablet 10-13 00:00: 00 10-21 00:00 :00 No [id number] Take one tablet PO today, then repeat in 72 hours [facility] doxycycline monohydrate 100 mg capsule 3 00:00: 00 10-16 04:59 :00 No [id number] 100mg Take 1 capsule by mouth in the morning and 1 capsule in the evening. Do all this for 7 days. [facility] azithromyci n 500 mg tablet 3- 00:00: 00 10-09 04:59 :00 No [id number] 1000mg Take 2 tablets by mouth once now for 1 dose. [facility] metroNIDAZO LE 0.75 % (37.5mg/5 gram) vaginal gel 10-06 00:00: 00 10-12 04:59 :00 No [id number] 1{appli cator} Insert 1 Applicator into vagina at bedtime for 5 days. [facility] fluconazole 150 mg tablet 10-06 00:00: 00 10-07 04:59 :00 No [id number] 150mg Take 1 tablet by mouth once now for 1 dose. [facility] amoxicillin -clavulanat e (AUGMENTIN) 875-125 mg per tablet 1 tablet 2022-07 04:15: 00 06-18 03:32 :00 No 1{tbl} 1 tablet, Oral, ONCE, 1 dose, On Fri06/17/23 at 2215, Routine
Reason for Anti-Infec tive: Documented Infection< br>Documen jeanna Infection Site: Skin / Soft Tissue
Duration of Therapy: Other (see Comments) [facility] amoxicillin -clavulanat e 875-125 mg per tablet 2022-07 00:00: 00 11-03 00:00 :00 No [id number] 1{tbl} Take 1 tablet by mouth every 12 (twelve) hours. [facility] ibuprofen 600 mg tablet 2022-07 00:00: 00 11-03 00:00 :00 No [id number] 600mg Take 1 tablet by mouth every 6 (six) hours as needed for Pain (scale 4-6). [facility] mupirocin 2 % ointment 03-20 00:00: 00 11-03 00:00 :00 No [id number] Apply to area(s) 3 (three) times daily. [facility] triamcinolo ne acetonide 0.1 % cream 03-20 00:00: 00 11-03 00:00 :00 No [id number] Apply to area(s) 2 (two) times daily. [facility] metroNIDAZO LE 500 mg tablet 03-20 00:00: 00 03-28 04:59 :00 No [id number] 500mg Take 1 tablet by mouth every 12 (twelve) hours for 7 days. [facility] metroNIDAZO LE 500 mg tablet 2020-07 00:00: 00 03-20 00:00 :00 No [id number] 500mg Take 1 tablet by mouth every 12 (twelve) hours. [facility] metroNIDAZO LE 500 mg tablet 11-23 00:00: 00 03-20 00:00 :00 No [id number] 500mg Take 1 tablet by mouth every 12 (twelve) hours. [facility] ferrous sulfate 325 mg (65 mg iron) tablet 02-16 00:00: 00 11-03 00:00 :00 No [id number] 102 325mg Take 1 tablet by mouth 2 (two) times daily. [facility] ibuprofen 600 mg tablet 01-10 00:00: 11-03 00:00 :00 No [id number] 600mg Take 1 tablet by mouth every 6 (six) hours as needed for Pain (scale 1-3) or Pain (scale 4-6). [facility] acetaminoph en (TYLENOL) 325 mg tablet 01-10 00:00: 00 11-03 00:00 :00 No [id number] 650mg Take 2 tablets by mouth every 6 (six) hours as needed for Pain (scale 1-3) or Pain (scale 4-6). [facility] mupirocin 2 % ointment 12-19 00:00: 00 11-03 00:00 :00 No [id number] Apply to area(s) 3 (three) times daily. [facility] vitamin w/FA tablet 11-22 00:00: 00 Yes [id number] 102 1{tbl} Take 1 tablet by mouth daily. [facility] vitamin w/FA tablet 11-22 00:00: 11-03 00:00 :00 No [id number] 102 1{tbl} Take 1 tablet by mouth daily. [facility] STOOL SOFTENER, DOCUSATE KIRIT, 240 mg capsule 11-22 00:00: 00 11-03 00:00 :00 No TAKE 1 CAPSULE BY MOUTH ONCE DAILY NEEDED FOR CONSTIPATI ON. [facility] ibuprofen 600 mg tablet 11-22 00:00: 00 11-03 00:00 :00 No TAKE 1 TABLET BY MOUTH EVERY 6 (SIX) HOURS NEEDED (PAIN). TAKE WITH FOOD OR MILK. [facility] Immunizations Ordered Immunization Name Filled Immunization Name Date Status Comments Source TDAP (ADACEL) VACCINE 2019-09-15 00:00:00 Completed [facility] TDAP (ADACEL) VACCINE 2019-09-15 00:00:00 Completed [facility] TDAP (ADACEL) VACCINE 2019-09-15 00:00:00 Completed [facility] TDAP (ADACEL) VACCINE 2019-09-15 00:00:00 Completed [facility] TDAP (ADACEL) VACCINE 2019-09-15 00:00:00 Completed [facility] TDAP (ADACEL) VACCINE 2019-09-15 00:00:00 Completed [facility] TDAP (ADACEL) VACCINE 2019-09-15 00:00:00 Completed [facility] TDAP (ADACEL) VACCINE 2019-09-15 00:00:00 Completed TDAP (ADACEL) VACCINE 2019-09-15 00:00:00 Completed Influenza Virus Vaccine Quad .5 mL IM 6+ MO 2019-05-03 00:00:00 Completed [facility] Influenza Virus Vaccine Quad .5 mL IM 6+ MO 2019-05-03 00:00:00 Completed [facility] Influenza Virus Vaccine Quad .5 mL IM 6+ MO 2019-05-03 00:00:00 Completed [facility] Influenza Virus Vaccine Quad .5 mL IM 6+ MO 2019-05-03 00:00:00 Completed [facility] Influenza Virus Vaccine Quad .5 mL IM 6+ MO 2019-05-03 00:00:00 Completed [facility] Influenza Virus Vaccine Quad .5 mL IM 6+ MO (FLUZONE/FLULAVAL/F LUARIX) 2019-05-03 00:00:00 Completed [facility] Influenza Virus Vaccine Quad .5 mL IM 6+ MO (FLUZONE/FLULAVAL/F LUARIX) 2019-05-03 00:00:00 Completed [facility] Influenza Virus Vaccine Quad .5 mL IM 6+ MO (FLUZONE/FLULAVAL/F LUARIX) 2019-05-03 00:00:00 Completed [facility] Influenza Virus Vaccine Quad .5 mL IM 6+ MO (FLUZONE/FLULAVAL/F LUARIX) 2019-05-03 00:00:00 Completed [facility] Influenza Virus Vaccine Quad IM 3+ YRS 2016-04-23 00:00:00 Completed [facility] Influenza Virus Vaccine Quad IM 3+ YRS 2016-04-23 00:00:00 Completed [facility] Influenza Virus Vaccine Quad IM 3+ YRS 2016-04-23 00:00:00 Completed [facility] Influenza Virus Vaccine Quad IM 3+ YRS 2016-04-23 00:00:00 Completed [facility] Influenza Virus Vaccine Quad IM 3+ YRS 2016-04-23 00:00:00 Completed [facility] Influenza Virus Vaccine Quad IM 3+ YRS 2016-04-23 00:00:00 Completed [facility] Influenza Virus Vaccine Quad IM 3+ YRS 2016-04-23 00:00:00 Completed [facility] Influenza Virus Vaccine Quad IM 3+ YRS 2016-04-23 00:00:00 Completed [facility] Influenza Virus Vaccine Quad IM 3+ YRS 2016-04-23 00:00:00 Completed [facility] TDAP 2016-03-26 00:00:00 Completed [facility] TDAP 2016-03-26 00:00:00 Completed [facility] TDAP 2016-03-26 00:00:00 Completed [facility] TDAP 2016-03-26 00:00:00 Completed [facility] TDAP 2016-03-26 00:00:00 Completed [facility] TDAP 2016-03-26 00:00:00 Completed [facility] TDAP 2016-03-26 00:00:00 Completed [facility] TDAP 2016-03-26 00:00:00 Completed TDAP 2016-03-26 00:00:00 Completed Influenza Virus Vaccine (3+ yrs) 2013-04-15 00:00:00 Completed [facility] Influenza Virus Vaccine (3+ yrs) 2013-04-15 00:00:00 Completed [facility] Influenza Virus Vaccine (3+ yrs) 2013-04-15 00:00:00 Completed [facility] Influenza Virus Vaccine (3+ yrs) 2013-04-15 00:00:00 Completed [facility] Influenza Virus Vaccine (3+ yrs) 2013-04-15 00:00:00 Completed [facility] Influenza Virus Vaccine (3+ yrs) 2013-04-15 00:00:00 Completed [facility] Influenza Virus Vaccine (3+ yrs) 2013-04-15 00:00:00 Completed [facility] Influenza Virus Vaccine (3+ yrs) 2013-04-15 00:00:00 Completed [facility] Influenza, split virus, trivalent, preservative (3+ Yrs) (Afluria) 2013-04-15 00:00:00 Completed [facility] Influenza Virus Vaccine - Whole 2010-08-28 00:00:00 Completed [facility] Rubella 2010-08-28 00:00:00 Completed [facility] Varicella (varivax)(chicken pox) 2010-08-28 00:00:00 Completed [facility] Influenza Virus Vaccine - Whole 2010-08-28 00:00:00 Completed [facility] Rubella 2010-08-28 00:00:00 Completed [facility] Varicella (varivax)(chicken pox) 2010-08-28 00:00:00 Completed [facility] Influenza Virus Vaccine - Whole 2010-08-28 00:00:00 Completed [facility] Rubella 2010-08-28 00:00:00 Completed [facility] Varicella (varivax)(chicken pox) 2010-08-28 00:00:00 Completed [facility] Influenza Virus Vaccine - Whole 2010-08-28 00:00:00 Completed [facility] Rubella 2010-08-28 00:00:00 Completed [facility] Varicella (varivax)(chicken pox) 2010-08-28 00:00:00 Completed [facility] Influenza Virus Vaccine - Whole 2010-08-28 00:00:00 Completed [facility] Rubella 2010-08-28 00:00:00 Completed [facility] Varicella (varivax)(chicken pox) 2010-08-28 00:00:00 Completed [facility] Rubella 2010-08-28 00:00:00 Completed [facility] Varicella (varivax)(chicken pox) 2010-08-28 00:00:00 Completed [facility] Rubella 2010-08-28 00:00:00 Completed [facility] Varicella (varivax)(chicken pox) 2010-08-28 00:00:00 Completed [facility] Rubella 2010-08-28 00:00:00 Completed Varicella (varivax)(chicken pox) 2010-08-28 00:00:00 Completed Rubella 2010-08-28 00:00:00 Completed Varicella (varivax)(chicken pox) 2010-08-28 00:00:00 Completed Td 2007-07-21 00:00:00 Completed [facility] Td 2007-07-21 00:00:00 Completed [facility] Td 2007-07-21 00:00:00 Completed [facility] Td 2007-07-21 00:00:00 Completed [facility] Td 2007-07-21 00:00:00 Completed [facility] TD, NOS 2007-07-21 00:00:00 Completed [facility] TD, NOS 2007-07-21 00:00:00 Completed [facility] TD, NOS 2007-07-21 00:00:00 Completed TD, NOS 2007-07-21 00:00:00 Completed Rubella Unknown Completed [facility] TD, NOS Unknown Completed [facility] Varicella (varivax)(chicken pox) Unknown Completed [facility] Influenza Virus Vaccine (3+ yrs) Unknown Completed [facility] TDAP Unknown Completed [facility] Influenza Virus Vaccine Quad IM 3+ YRS Unknown Completed [facility] Rubella Unknown Completed [facility] TD, NOS Unknown Completed [facility] Varicella (varivax)(chicken pox) Unknown Completed [facility] Influenza Virus Vaccine (3+ yrs) Unknown Completed [facility] TDAP Unknown Completed [facility] Influenza Virus Vaccine Quad IM 3+ YRS Unknown Completed [facility] Influenza Virus Vaccine - Whole Unknown Completed [facility] Rubella Unknown Completed [facility] TD, NOS Unknown Completed [facility] Varicella (varivax)(chicken pox) Unknown Completed [facility] TDAP Unknown Completed [facility] Influenza Virus Vaccine Quad IM 3+ YRS Unknown Completed [facility] Rubella Unknown Completed [facility] TD, NOS Unknown Completed [facility] Varicella (varivax)(chicken pox) Unknown Completed [facility] Influenza Virus Vaccine (3+ yrs) Unknown Completed [facility] TDAP Unknown Completed [facility] Influenza Virus Vaccine Quad IM 3+ YRS Unknown Completed [facility] Rubella Unknown Completed [facility] TD, NOS Unknown Completed [facility] Varicella (varivax)(chicken pox) Unknown Completed [facility] Influenza Virus Vaccine (3+ yrs) Unknown Completed [facility] TDAP Unknown Completed [facility] [facility] Influenza Virus Vaccine Quad IM 3+ YRS Unknown Completed [facility] Rubella Unknown Completed [facility] TD, NOS Unknown Completed [facility] Varicella (varivax)(chicken pox) Unknown Completed [facility] Influenza Virus Vaccine (3+ yrs) Unknown Completed [facility] TDAP Unknown Completed [facility] Influenza Virus Vaccine Quad IM 3+ YRS Unknown Completed [facility] Rubella Unknown Completed [facility] TD, NOS Unknown Completed [facility] Varicella (varivax)(chicken pox) Unknown Completed [facility] Influenza Virus Vaccine (3+ yrs) Unknown Completed [facility] TDAP Unknown Completed [facility] Influenza Virus Vaccine Quad IM 3+ YRS Unknown Completed [facility] Rubella Unknown Completed [facility] TD, NOS Unknown Completed [facility] Varicella (varivax)(chicken pox) Unknown Completed [facility] Influenza Virus Vaccine (3+ yrs) Unknown Completed [facility] TDAP Unknown Completed [facility] Influenza Virus Vaccine Quad IM 3+ YRS Unknown Completed [facility] Influenza Virus Vaccine - Whole Unknown Completed [facility] Rubella Unknown Completed [facility] TD, NOS Unknown Completed [facility] Varicella (varivax)(chicken pox) Unknown Completed [facility] TDAP Unknown Completed [facility] Influenza Virus Vaccine Quad IM 3+ YRS Unknown Completed [facility] Rubella Unknown Completed [facility] TD, NOS Unknown Completed [facility] Varicella (varivax)(chicken pox) Unknown Completed [facility] Influenza Virus Vaccine (3+ yrs) Unknown Completed [facility] TDAP Unknown Completed [facility] Influenza Virus Vaccine Quad IM 3+ YRS Unknown Completed [facility] Rubella Unknown Completed [facility] TD, NOS Unknown Completed [facility] Varicella (varivax)(chicken pox) Unknown Completed [facility] Influenza Virus Vaccine (3+ yrs) Unknown Completed [facility] TDAP Unknown Completed [facility] Influenza Virus Vaccine Quad IM 3+ YRS Unknown Completed [facility] Rubella Unknown Completed [facility] TD, NOS Unknown Completed [facility] Varicella (varivax)(chicken pox) Unknown Completed [facility] Influenza Virus Vaccine (3+ yrs) Unknown Completed [facility] TDAP Unknown Completed [facility] Influenza Virus Vaccine Quad IM 3+ YRS Unknown Completed [facility] Rubella Unknown Completed [facility] TD, NOS Unknown Completed [facility] Varicella (varivax)(chicken pox) Unknown Completed [facility] Influenza Virus Vaccine (3+ yrs) Unknown Completed [facility] TDAP Unknown Completed [facility] Influenza Virus Vaccine Quad IM 3+ YRS Unknown Completed [facility] Rubella Unknown Completed [facility] TD, NOS Unknown Completed [facility] Varicella (varivax)(chicken pox) Unknown Completed [facility] Influenza Virus Vaccine (3+ yrs) Unknown Completed [facility] TDAP Unknown Completed [facility] Influenza Virus Vaccine Quad IM 3+ YRS Unknown Completed [facility] Rubella Unknown Completed [facility] TD, NOS Unknown Completed [facility] Varicella (varivax)(chicken pox) Unknown Completed [facility] Influenza Virus Vaccine (3+ yrs) Unknown Completed [facility] TDAP Unknown Completed [facility] Influenza Virus Vaccine Quad IM 3+ YRS Unknown Completed [facility] Rubella Unknown Completed [facility] TD, NOS Unknown Completed [facility] Varicella (varivax)(chicken pox) Unknown Completed [facility] Influenza Virus Vaccine (3+ yrs) Unknown Completed [facility] TDAP Unknown Completed [facility] Influenza Virus Vaccine Quad IM 3+ YRS Unknown Completed [facility] Rubella Unknown Completed [facility] TD, NOS Unknown Completed [facility] Varicella (varivax)(chicken pox) Unknown Completed [facility] Influenza Virus Vaccine (3+ yrs) Unknown Completed [facility] TDAP Unknown Completed [facility] Influenza Virus Vaccine Quad IM 3+ YRS Unknown Completed [facility] Rubella Unknown Completed [facility] TD, NOS Unknown Completed [facility] Varicella (varivax)(chicken pox) Unknown Completed [facility] Influenza Virus Vaccine (3+ yrs) Unknown Completed [facility] TDAP Unknown Completed [facility] Influenza Virus Vaccine Quad IM 3+ YRS Unknown Completed [facility] Rubella Unknown Completed [facility] TD, NOS Unknown Completed [facility] Varicella (varivax)(chicken pox) Unknown Completed [facility] Influenza Virus Vaccine (3+ yrs) Unknown Completed [facility] TDAP Unknown Completed [facility] Influenza Virus Vaccine Quad IM 3+ YRS Unknown Completed [facility] Rubella Unknown Completed [facility] TD, NOS Unknown Completed [facility] Varicella (varivax)(chicken pox) Unknown Completed [facility] Influenza Virus Vaccine (3+ yrs) Unknown Completed [facility] TDAP Unknown Completed [facility] Influenza Virus Vaccine Quad IM 3+ YRS Unknown Completed [facility] Rubella Unknown Completed [facility] TD, NOS Unknown Completed [facility] Varicella (varivax)(chicken pox) Unknown Completed [facility] Influenza Virus Vaccine (3+ yrs) Unknown Completed [facility] TDAP Unknown Completed [facility] Influenza Virus Vaccine Quad IM 3+ YRS Unknown Completed [facility] Vital Signs Vital Name Observation Time Observation Value Comments S ource Systolic blood pressure 2024-11-23 14:08:00 121 mm[Hg] [facility] Diastolic blood pressure 2024-11-23 14:08:00 83 mm[Hg] [facility] Heart rate 2024-11-23 14:08:00 81 /min [facility] Body temperature 2024-11-23 14:08:00 36.39 Krista [facility] Body height 2024-11-23 14:08:00 165.1 cm [facility] Body weight 2024-11-23 14:08:00 80.105 kg [facility] BMI 2024-11-23 14:08:00 29.39 kg/m2 [facility] Systolic blood pressure 2024-03-12 19:18:00 122 mm[Hg] [facility] Diastolic blood pressure 2024-03-12 19:18:00 83 mm[Hg] [facility] Heart rate 2024-03-12 19:18:00 80 /min Un[facility] Body temperature 2024-03-12 19:18:00 36.61 Krista [facility] Body weight 2024-03-12 19:18:00 82.192 kg [facility] BMI 2024-03-12 19:18:00 30.15 kg/m2 [facility] Systolic blood pressure 2023-11-04 13:27:00 124 mm[Hg] [facility] Diastolic blood pressure 2023-11-04 13:27:00 81 mm[Hg] [facility] Heart rate 2023-11-04 13:27:00 71 /min Unive [facility] Body temperature 2023-11-04 13:27:00 36.17 Krista [facility] Body height 2023-11-04 13:27:00 165.1 cm [facility] Body weight 2023-11-04 13:27:00 75.841 kg [facility] BMI 2023-11-04 13:27:00 27.82 kg/m2 [facility] Systolic blood pressure 2023-10-07 16:31:00 138 mm[Hg] [facility] Diastolic blood pressure 2023-10-07 16:31:00 94 mm[Hg] [facility] Heart rate 2023-10-07 16:29:00 74 /min Unive [facility] Body height 2023-10-07 16:29:00 165.1 cm [facility] Body weight 2023-10-07 16:29:00 77.656 kg [facility] BMI 2023-10-07 16:29:00 28.49 kg/m2 [facility] Systolic blood pressure 2023-06-18 01:55:00 136 mm[Hg] [facility] Diastolic blood pressure 2023-06-18 01:55:00 81 mm[Hg] [facility] Heart rate 2023-06-18 01:55:00 88 /min Un[facility] Body temperature 2023-06-18 01:55:00 36.72 Krista [facility] Respiratory rate 2023-06-18 01:55:00 18 /min [facility] Body height 2023-06-18 01:55:00 165.1 cm [facility] Body weight 2023-06-18 01:55:00 74.844 kg [facility] BMI 2023-06-18 01:55:00 27.46 kg/m2 [facility] Oxygen saturation in Arterial blood by Pulse oximetry 2023-06-18 01:55:00 100 /min [facility] Systolic blood pressure 2023-03-20 13:07:00 120 mm[Hg] [facility] Diastolic blood pressure 2023-03-20 13:07:00 82 mm[Hg] [facility] Heart rate 2023-03-20 13:07:00 83 /min [facility] Respiratory rate 2023-03-20 13:07:00 18 /min [facility] Body height 2023-03-20 13:07:00 165.1 cm [facility] Body weight 2023-03-20 13:07:00 73.483 kg [facility] BMI 2023-03-20 13:07:00 26.96 kg/m2 [facility] Systolic blood pressure 2021-06-04 14:18:00 117 mm[Hg] [facility] Diastolic blood pressure 2021-06-04 14:18:00 78 mm[Hg] [place] [facility] Heart rate 2021-06-04 14:18:00 64 /min [facility] Body temperature 2021-06-04 14:18:00 36.83 Krista [facility] Respiratory rate 2021-06-04 14:18:00 18 /min [facility] Body height 2021-06-04 14:18:00 165.1 cm [facility] Body weight 2021-06-04 14:18:00 75.297 kg [facility] BMI 2021-06-04 14:18:00 27.62 kg/m2 [facility] Procedures Procedure Date / Time Performed Performing Clinicia n Source ASSIGNMENT OF BENEFITS 2023-06-18 03:22:49 Docshan estevez Unassigned, [place] CONSENT/REFUSAL FOR DIAGNOSIS AND TREATMENT 2023-06-18 01:36:21 Doctor Unassigned, [place] ASSIGNMENT OF BENEFITS 2023-03-20 12:56:14 Docto r Unassigned, [place] Encounters Start Date/Time End Date/Time Encounter Type Admission Type Attending Clinicians Care Facility Care Department Encounter ID Source 2021-05-18 01:31:00 Outpatient R YOUNG S[facility]NC[facility]Z [facility] [place] [id number] [facility] 2021-05-17 19:44:[address] [facility] YESICA [id number] [facility] 2021-05-17 19:43:[address] [facility] YESICA [id number] [facility] 2025-01-19 00:00:00 2025-01-27 15:29:27 Refill Phyllis Osman [facility] 1.2.840.114 350.1.13.10 4.2.7.2.686 [id number] 134 [id number] [facility] 2024-11-25 00:00:00 2025-01-01 18:28:03 Patient Secure Msg Phyllis Osman [facility] 1.2.840.114 350.1.13.10 4.2.7.2.686 [id number] 134 [id number] [facility] 2024-11-24 00:00:00 2024-12-25 18:18:42 Patient Secure Msg Phyllis Osman [facility] 1.2.840.114 350.1.13.10 4.2.7.2.686 [id number] 134 [id number] [facility] 2024-11-24 00:00:00 2024-11-24 16:51:35 Case Management [facility] 1.2.840.114 350.1.13.10 4.2.7.2.686 [id number] 134 [id number] [facility] 2024-11-23 09:15:00 2024-11-23 09:42:35 Outpatient R JACQUI PHYLLIS [facility] [id number] [facility] 2024-11-23 09:15:00 2024-11-23 09:42:35 Office Visit JacquiPhyllis [facility] 1.2.840.114 350.1.13.10 4.2.7.2.686 [id number] 134 [id number] [facility] 2024-11-17 16:00:00 2024-11-17 16:00:00 Outpatient R JACQUI PHYLLIS [facility] [id number] [facility] 2024-11-17 00:00:00 2024-11-17 10:40:50 Telephone Jacqui Phyllis [facility] 1.2.840.114 350.1.13.10 4.2.7.2.686 [id number] 134 [id number] [facility] 2024-11-15 00:00:00 2024-11-15 13:42:32 Telephone Phyllis Osman [facility] 1.2.840.114 350.1.13.10 4.2.7.2.686 [id number] 134 [id number] [facility] 2024-10-12 09:53:51 2024-10-12 09:53:51 Outpatient SFA SFA [id number] Anthony Lozano 2024-08-11 16:30:00 2024-08-11 16:30:00 Outpatient R JACQUI PHYLLIS [facility] [id number] [facility] 2024-07-28 16:00:00 2024-07-28 16:00:00 Outpatient R JACQUI PHYLLIS [facility] [id number] [facility] 2024-07-28 15:56:14 2024-07-28 15:56:14 Outpatient SFA [id number] Anthony Lozano 2024-06-11 00:00:00 2024-07-17 18:19:43 Patient Secure Msg Doctor Unassigned, [place] Doctor Unassigned, [place] ..840.114 350.1.13.10 4.2.7.2.686 [id number] 134 [id number] [facility] 2024-06-25 16:00:00 2024-06-25 16:00:00 Outpatient R JACQUI PHYLLIS [facility] [id number] [facility] 2024-06-23 16:00:00 2024-06-23 16:00:00 Outpatient R PHYLLIS OSMAN [facility] [id number] [facility] 2024-06-14 16:30:00 2024-06-14 16:30:00 Outpatient R PHYLLIS OSMAN [facility] [id number] [facility] 2024-06-14 00:00:00 2024-06-14 15:45:30 Telephone Phyllis Osman [facility] 1..840.114 350.1.13.10 4.2.7.2.686 [id number] 134 [id number] [facility] 2024-06-09 16:00:00 2024-06-09 16:00:00 Outpatient R PHYLLIS OSMAN [facility] [id number] [facility] 2024-05-31 16:30:00 2024-05-31 16:30:00 Outpatient R PHYLLIS OSMAN [facility] [id number] [facility] 2024-05-25 16:00:00 2024-05-25 16:00:00 Outpatient R PHYLLIS OSMAN [facility] [id number] [facility] 2024-05-18 00:00:00 2024-05-18 15:24:32 Telephone Phyllis Osman [facility] 1.2.840.114 350.1.13.10 4.2.7.2.686 [id number] 134 [id number] [facility] 2024-03-15 00:00:00 2024-04-17 18:23:25 Patient Secure Msg Doctor Unassigned, [place] Doctor Unassigned, [place] [facility] 1.2.840.114 350.1.13.10 4.2.7.2.686 [id number] 134 [id number] [facility] 2024-03-15 00:00:00 2024-03-16 16:55:48 Telephone [facility] 1.2.840.114 350.1.13.10 4.2.7.2.686 [id number] 134 [id number] [facility] 2024-03-16 16:30:00 2024-03-16 16:30:00 Outpatient R PHYLLIS OSMAN [facility] [id number] [facility] 2024-03-15 00:00:00 2024-03-15 07:59:26 Case Management JosepPhyllis stover [facility] 1.2.840.114 350.1.13.10 4.2.7.2.686 [id number] 134 [id number] [facility] 2024-03-12 14:30:00 2024-03-12 15:00:00 [facility] Tilanhan [facility] 1.2.840.114 350.1.13.10 4.2.7.2.686 [id number] 134 [id number] [facility] 2024-03-12 14:30:00 2024-03-12 14:30:00 Outpatient R PHYLLIS OSMAN [facility] [id number] [facility] 2024-03-01 08:00:00 2024-03-01 08:00:00 Outpatient R PHYLLIS OSMAN [facility] [id number] [facility] 2024-02-25 00:00:00 2024-02-27 12:28:12 Telephone Phyllis Osman [facility] 1.2.840.114 350.1.13.10 4.2.7.2.686 [id number] 134 [id number] [facility] 2023-11-17 00:00:00 2023-11-17 00:00:00 Telephone Jacqui Phyllis [facility] 1.2.840.114 350.1.13.10 4.2.7.2.686 [id number] 134 [id number] [facility] 2023-11-11 00:00:00 2023-11-11 00:00:00 Patient Secure Msg Doctor Unassigned, [place] [facility] 1.2.840.114 350.1.13.10 4.2.7.2.686 [id number] 134 [id number] [facility] 2023-11-07 08:30:00 2023-11-07 08:30:00 Outpatient R PHYLLIS OSMAN [facility] [id number] [facility] 2023-11-06 00:00:00 2023-11-06 00:00:00 Refill Tilamalcomaidee Phyllis [facility] 1.2.840.114 350.1.13.10 4.2.7.2.686 [id number] 134 [id number] [facility] 2023-11-04 08:30:00 2023-11-04 09:03:20 Outpatient R JACQUI PHYLLIS [facility] [id number] [facility] 2023-11-04 08:30:00 2023-11-04 09:03:20 Office Visit Jacqui Phyllis [facility] 1.2.840.114 350.1.13.10 4.2.7.2.686 [id number] 134 [id number] [facility] 2023-10-31 00:00:00 2023-10-31 00:00:00 Telephone Jacqui Phyllis [facility] 1.2.840.114 350.1.13.10 4.2.7.2.686 [id number] 134 [id number] [facility] 2023-10-22 00:00:00 2023-10-22 00:00:00 Telephone Jacqui Phyllis [facility] 1.2.840.114 350.1.13.10 4.2.7.2.686 [id number] 134 [id number] [facility] 2023-10-13 00:00:00 2023-10-13 00:00:00 Telephone TilamalcomaideePhyllis [facility] 1.2.840.114 350.1.13.10 4.2.7.2.686 [id number] 134 [id number] [facility] 2023-10-09 00:00:00 2023-10-09 00:00:00 Telephone Jacqui Phyllis [facility] 1.2.840.114 350.1.13.10 4.2.7.2.686 [id number] 134 [id number] [facility] 2023-10-08 09:00:00 2023-10-08 09:00:00 Outpatient R PHYLLIS OSMAN [facility] [id number] [facility] 2023-10-07 11:30:00 2023-10-07 11:51:05 Outpatient R PHYLLIS OSMAN [facility] [id number] [facility] 2023-10-07 11:30:00 2023-10-07 11:51:05 Office Visit Phyllis Osman [facility] 1.2.840.114 350.1.13.10 4.2.7.2.686 [id number] 134 [id number] [facility] 2023-08-20 10:00:00 2023-08-20 10:00:00 Outpatient R YOMI MENDOZA [facility] [id number] [facility] 2023-08-19 00:00:00 2023-08-19 00:00:00 Telephone Joe Young [facility] 1.2.840.114 350.1.13.10 4.2.7.2.686 [id number] 134 [id number] [facility] 2023-06-23 09:15:00 2023-06-23 09:15:00 Outpatient R YOUNG SÁNCHEZ [facility] [id number] [facility] 2023-06-23 00:00:00 2023-06-23 00:00:00 Telephone Joe Young [facility] 1.2.840.114 350.1.13.10 4.2.7.2.686 [id number] 134 [id number] [facility] 2023-06-20 00:00:00 2023-06-20 00:00:00 Telephone Yonug Sánchez [facility] 1.2.840.114 350.1.13.10 4.2.7.2.686 [id number] 134 [id number] [facility] 2023-06-17 20:00:00 2023-06-17 21:33:00 Emergency X Wilmer [facility] ERT [id number] [facility] 2023-06-17 20:00:00 2023-06-17 21:33:00 Emergency Wilmer [facility] 1.20.114 350.1.13.10 4.2.7.2.686 [id number] [facility] 2023-06-09 19:00:00 2023-06-09 19:00:00 Outpatient R [facility] [id number] [facility] 2023-06-09 00:00:00 2023-06-09 00:00:00 Telephone Briana Garner [facility] 1.0.114 350.1.13.10 4.2.7.2.686 [id number] 134 [id number] [facility] 2023-06-06 00:00:00 2023-06-06 00:00:00 Telephone Wilton Weems [facility] 1.0.114 350.1.13.10 4.2.7.2.686 [id number] 134 [id number] [facility] 2023-03-20 08:00:00 2023-03-20 08:14:49 Outpatient R WILTON WEEMS CHERYAL [facility] [id number] [facility] 2023-03-20 08:00:00 2023-03-20 08:14:49 Office Visit Wilton Weems [facility] 1.0.114 350.1.13.10 4.2.7.2.686 [id number] 134 [id number] [facility] 2023-03-20 00:00:00 2023-03-20 00:00:00 Orders Only Doctor Unassigned, [place] [facility] 1.2.840.114 350.1.13.10 4.2.7.2.686 [id number] [facility] 2021-11-30 15:30:00 2021-11-30 15:30:00 Outpatient WILTON RENDON CH[facility] [id number] [facility] 2021-11-21 09:00:00 2021-11-21 09:00:00 Outpatient EDER COOPER [facility] [id number] [facility] 2021-10-15 00:00:00 2021-10-15 00:00:00 Eder James [facility] 1.2.840.114 350.1.13.10 4.2.7.2.686 [id number] 134 [id number] [facility] 2021-10-08 15:30:00 2021-10-08 15:30:00 Outpatient EDER COOPER [facility] [id number] [facility] 2021-10-05 00:00:00 2021-10-05 00:00:00 Patient Secure Msg Jess [facility] 1.2.840.114 350.1.13.10 4.2.7.2.686 [id number] 134 [id number] [facility] 2021-08-01 09:00:00 2021-08-01 09:00:00 Outpatient EDER COOPER [facility] [id number] [facility] 2021-08-01 09:00:00 2021-08-01 09:00:00 Outpatient EDER COOPER [facility] [id number] [facility] 2021-06-29 00:00:00 2021-06-29 00:00:00 Patient Secure Msg Doctor Unassigned, [place] [facility] 1..114 350.1.13.10 4.2.7.2.686 [id number] [facility] 2021-06-19 00:00:00 2021-06-19 00:00:00 Telephone Eder Mercado [facility] 1..114 350.1.13.10 4.2.7.2.686 [id number] 134 [id number] [facility] 2021-06-11 00:00:00 2021-06-11 00:00:00 Case Management Eder Mercado [facility] 1.114 350.1.13.10 4.2.7.2.686 [id number] [facility] 2021-06-07 00:00:00 2021-06-07 00:00:00 Telephone Eder Mercado [facility] 1..114 350.1.13.10 4.2.7.2.686 [id number] 134 [id number] [facility] 2021-06-04 08:03:15 2021-06-04 08:25:46 Office Visit Eder Mercado [facility] 1..114 350.1.13.10 4.2.7.2.686 [id number] 134 [id number] [facility] 2021-06-04 08:00:00 2021-06-04 08:25:46 Outpatient R EDER MERCADO [facility] [id number] [facility] 2021-06-04 00:00:00 2021-06-04 00:00:00 Orders Only Doctor Unassigned, [place] [facility] 1..114 350.1.13.10 4.2.7.2.686 [id number] [facility] 2021-06-04 00:00:00 2021-06-04 00:00:00 Letter (Out) Eder Mercado [facility] 1.2.840.114 350.1.13.10 4.2.7.2.686 [id number] 134 [id number] [facility] 2021-01-05 00:00:00 2021-01-05 00:00:00 [facility] 1.2.840.114 350.1.13.10 4.2.7.2.686 [id number] 134 [id number] [facility] 2021-01-02 08:10:01 2021-01-02 08:47:54 Office Visit Eder Mercado [facility] 1.2.840.114 350.1.13.10 4.2.7.2.686 [id number] 134 [id number] [facility] 2021-01-02 08:00:00 2021-01-02 08:00:00 Outpatient R JESSEDER [facility] [id number] [facility] 2020-12-20 14:00:00 2020-12-20 14:00:00 Outpatient R YOMI MENDOZA [facility] [id number] [facility] 2020-12-05 00:00:00 2020-12-05 00:00:00 Telephone Eder Mercado [facility] 1.2.840.114 350.1.13.10 4.2.7.2.686 [id number] 134 [id number] [facility] 2020-11-23 11:00:00 2020-11-23 11:00:00 Outpatient R [facility] [id number] [facility] 2020-11-23 00:00:00 2020-11-23 00:00:00 Case Management VanEder bertrand [facility] 1.2.840.114 350.1.13.10 4.2.7.2.686 [id number] 134 [id number] [facility] 2020-11-21 14:13:39 2020-11-21 14:43:39 [facility] 1.2.840.114 350.1.13.10 4.2.7.2.686 [id number] 134 [id number] [facility] 2020-11-21 14:00:00 2020-11-21 14:00:00 [facility] [id number] [facility] 2020-10-10 00:00:00 2020-10-10 00:00:00 Patient Outreach Del Villalobos [facility] 1.2.840.114 350.1.13.10 4.2.7.2.686 [id number] [facility] 2020-08-24 00:00:00 2020-08-24 00:00:00 Case Management Eder Mercado [facility] 1.2.840.114 350.1.13.10 4.2.7.2.686 [id number] 134 [id number] [facility] 2020-08-24 00:00:00 2020-08-24 00:00:00 Telephone Eder Mercado [facility] 1.2.840.114 350.1.13.10 4.2.7.2.686 [id number] 134 [id number] [facility] 2020-08-16 15:28:03 2020-08-16 15:58:03 Office Visit Eder Mercado [facility] Building 1.2.840.114 350.1.13.10 4.2.7.2.686 [id number] 134 [id number] [facility] 2020-08-16 15:15:00 2020-08-16 15:15:00 Outpatient R EDER MERCADO [facility] [id number] [facility] 2020 00:00:00 2020 00:00:00 Telephone [facility] 1.2.840.114 350.1.13.10 4.2.7.2.686 [id number] 134 [id number] [facility] 2020-08-08 00:00:00 2020-08-08 00:00:00 [facility] 1.2.840.114 350.1.13.10 4.2.7.2.686 [id number] 134 [id number] [facility] 2020-08-01 00:00:00 2020-08-01 00:00:00 Orders Only Doctor Unassigned, [place] [facility] 1.2.840.114 350.1.13.10 4.2.7.2.686 [id number] [id number] [facility] 2020-07-31 15:22:28 2020-07-31 16:17:07 Office Visit Eder Mercdao [facility] Building 1.2.840.114 350.1.13.10 4.2.7.2.686 [id number] 134 [id number] [facility] 2020-07-31 15:30:00 2020-07-31 15:30:00 Outpatient R EDER MERCADO [facility] [id number] [facility] 2020-07-26 13:30:00 2020-07-26 13:30:00 Outpatient R EDER MERCADO [facility] [id number] [facility] 2020-03-30 00:00:00 2020-03-30 00:00:00 Case Management [facility] 1.2.840.114 350.1.13.10 4.2.7.2.686 [id number] 134 [id number] [facility] 2020-03-28 14:54:12 2020-03-28 15:39:01 Office Visit Eder Mercado [facility] Building 1.2.840.114 350.1.13.10 4.2.7.2.686 [id number] 134 [id number] [facility] 2020-03-28 14:45:00 2020-03-28 14:45:00 [facility] [id number] [facility] 2020-02-29 11:00:00 2020-02-29 11:00:00 Outpatient R KELLY [facility] [id number] [facility] 2020-02-23 16:00:00 2020-02-23 16:00:00 Outpatient R KLELY [facility] [id number] [facility] 2020-02-15 00:00:00 2020-02-15 00:00:00 Refill Eder Mercado [facility] Building 1.2.840.114 350.1.13.10 4.2.7.2.686 [id number] 134 [id number] [facility] 2020-01-26 10:15:00 2020-01-26 10:15:00 Outpatient R YOUNG SÁNCHEZ [facility] [id number] [facility] 2020-01-24 15:51:55 2020-01-24 16:46:11 Routine Visit Jess EderYoung Sanchez [facility] 1.2.840.114 350.1.13.10 4.2.7.2.686 [id number] 134 [id number] [facility] 2020-01-24 15:45:00 2020-01-24 15:45:00 Outpatient YOUNG WONG [facility] [id number] [facility] 2020-01-14 00:00:00 2020-01-14 00:00:00 Telephone [facility] 1.2.840.114 350.1.13.10 4.2.7.2.686 [id number] 134 [id number] [facility] 2020-01-11 06:47:00 2020-01-11 10:45:00 Hospital Encounter Young Sánchez [facility] 1.2.840.114 350.1.13.10 4.2.7.2.686 [id number] 071 [id number] [facility] 2020-01-11 00:00:00 2020-01-11 00:00:00 Telephone Young Sánchez [facility] Building 1.2840.114 350.1.13.10 4.2.7.2.686 [id number] 134 [id number] [facility] 2020-01-11 00:00:00 2020-01-11 00:00:00 Patient Secure Msg Young Sánchez [facility] Building 1.2840.114 350.1.13.10 4.2.7.2.686 [id number] 134 [id number] [facility] 2020-01-10 14:26:29 2020-01-10 14:41:29 Laboratory Only Only, Adc Test Young Sánchez [facility] 1.2840.114 350.1.13.10 4.2.7.2.686 [id number] [facility] 2020-01-10 13:45:00 2020-01-10 13:45:00 Outpatient R YOUNG SÁNCHEZ [facility] [id number] [facility] 2020-01-10 00:00:00 2020-01-10 00:00:00 Patient Secure Msg Doctor Unassigned, [place] [facility] 1.284.114 350.1.13.10 4.2.7.2.686 [id number] [id number] [facility] 2020-01-05 09:15:20 2020-01-05 10:20:04 Office Visit Young Sánchez [facility] 1.2.840.114 350.1.13.10 4.2.7.2.686 [id number] 134 [id number] [facility] 2020-01-05 09:15:00 2020-01-05 09:15:00 Outpatient R YOUNG SÁNCHEZ [facility] [id number] [facility] 2019-12-20 09:30:00 2019-12-20 09:30:00 Outpatient EDER COOPER [facility] [id number] [facility] 2019-12-16 08:10:04 2019-12-16 16:56:13 Telemedici ne Visit Young Sánchez [facility] 1.2.840.114 350.1.13.10 4.2.7.2.686 [id number] 134 [id number] [facility] 2019-12-16 16:00:00 2019-12-16 16:00:00 Outpatient R YOUNG SÁNCHEZ [facility] [id number] [facility] 2019-11-25 00:00:00 2019-11-25 00:00:00 Telephone Young Sánchez [facility] 1.2.840.114 350.1.13.10 4.2.7.2.686 [id number] 134 [id number] [facility] 2019-11-22 00:20:00 2019-11-23 14:15:00 Hospital Encounter Young Sánchez [facility] 1.2.840.114 350.1.13.10 4.2.7.2.686 [id number] [id number] [facility] 2019-11-23 10:00:00 2019-11-23 10:00:00 Outpatient EDER COOPER [facility] [id number] [facility] 2019-11-23 00:00:00 2019-11-23 00:00:00 Refill Young Sánchez [facility] 1.2.840.114 350.1.13.10 4.2.7.2.686 [id number] [id number] [facility] 2019-11-22 00:00:00 2019-11-22 00:00:00 Orders Only Doctor Unassigned, [place] [facility] 1.2840.114 350.1.13.10 4.2.7.2.686 [id number] [facility] 2019-11-21 11:20:00 2019-11-21 13:15:00 Hospital Encounter Young Sánchez [facility] 1.2.840.114 350.1.13.10 4.2.7.2.686 [id number] 083 [id number] [facility] 2019-11-21 10:40:00 2019-11-21 10:40:00 Outpatient R HUMAN, [facility] [id number] [facility] 2019-11-21 10:00:00 2019-11-21 10:00:00 Outpatient R HUMAN, [facility] [id number] [facility] 2019-11-20 00:00:00 2019-11-20 00:00:00 Nurse Triage Reyna Bhakta [facility] 1.20.114 350.1.13.10 4.2.7.2.686 [id number] [facility] 2019-11-19 00:00:00 2019-11-19 00:00:00 Telephone Young Sánchez [facility] 1.2840.114 350.1.13.10 4.2.7.2.686 [id number] 134 [id number] [facility] 2019-11-18 13:52:23 2019-11-18 15:04:21 Routine Visit Young Sánchez [facility] 1.2.840.114 350.1.13.10 4.2.7.2.686 [id number] 134 [id number] [facility] 2019-11-18 13:45:00 2019-11-18 13:45:00 Outpatient R YOUNG SÁNCHEZ [facility] [id number] [facility] 2019-11-11 11:28:21 2019-11-11 11:52:34 Routine Visit Eder Mercado [facility] 1.2.840.114 350.1.13.10 4.2.7.2.686 [id number] 134 [id number] [facility] 2019-11-11 11:30:00 2019-11-11 11:30:00 Outpatient R EDER MERCADO [facility] [id number] [facility] 2019-11-09 00:00:00 2019-11-09 00:00:00 Telephone Eder Mercado [facility] 1.2.840.114 350.1.13.10 4.2.7.2.686 [id number] 134 [id number] [facility] 2019-11-08 00:00:00 2019-11-08 00:00:00 [facility] 1.2.840.114 350.1.13.10 4.2.7.2.686 [id number] 134 [id number] [facility] 2019-11-03 14:13:56 2019-11-03 14:28:56 Net Manager Visit 2, Adc Lab Young Sánchez [facility] 1.2.840.114 350.1.13.10 4.2.7.2.686 [id number] [facility] 2019-11-03 13:29:48 2019-11-03 14:05:52 Routine Visit Sánchez, Young [facility] Building 1.2.840.114 350.1.13.10 4.2.7.2.686 [id number] 134 [id number] [facility] 2019-11-03 13:30:00 2019-11-03 13:30:00 Outpatient R YOUNG SÁNCHEZ [facility] [id number] [facility] 2019-11-03 00:00:00 2019-11-03 00:00:00 Orders Only Doctor Unassigned, [place] [facility] 1.284.114 350.1.13.10 4.2.7.2.686 [id number] [facility] 2019-11-01 00:00:00 2019-11-01 00:00:00 Telephone Young Sánchez [facility] 1.840.114 350.1.13.10 4.2.7.2.686 [id number] 134 [id number] [facility] 2019-10-28 09:45:00 2019-10-28 09:45:00 Outpatient R YOUNG SÁNCHEZ [facility] [id number] [facility] 2019-10-27 08:22:26 2019-10-27 15:39:53 Telemedici ne Visit Young Sánchez [facility] Building 1.840.114 350.1.13.10 4.2.7.2.686 [id number] 134 [id number] [facility] 2019-10-27 15:00:00 2019-10-27 15:00:00 Outpatient R YOUNG SÁNCHEZ [facility] [id number] [facility] 2019-10-18 00:00:00 2019-10-18 00:00:00 Wesill Eder Mercado [facility] Building 1.2.840.114 350.1.13.10 4.2.7.2.686 [id number] 134 [id number] [facility] 2019-10-18 00:00:00 2019-10-18 00:00:00 Refill Young Sánchez [facility] Building 1.2.840.114 350.1.13.10 4.2.7.2.686 [id number] 134 [id number] [facility] 2019-10-14 00:00:00 2019-10-14 00:00:00 Case Management Eder Mercado [facility] 1.2.840.114 350.1.13.10 4.2.7.2.686 [id number] 134 [id number] [facility] 2019-10-14 00:00:00 2019-10-14 00:00:00 Nurse Triage Himanshu Raymond [facility] 1.2.840.114 350.1.13.10 4.2.7.2.686 [id number] 019 [id number] [facility] 2019-10-13 09:45:00 2019-10-13 09:45:00 Outpatient R EDER MERCADO [facility] [id number] [facility] 2019-10-13 08:24:29 2019-10-13 08:39:29 Telemedici ne Visit Eder Mercado [facility] 1.2.840.114 350.1.13.10 4.2.7.2.686 [id number] 134 [id number] [facility] 2019-10-13 00:00:00 2019-10-13 00:00:00 Telephone Young Sánchez [facility] 1.2.840.114 350.1.13.10 4.2.7.2.686 [id number] 134 [id number] [facility] 2019-09-29 09:21:36 2019-09-29 10:29:49 Routine Visit Young Sánchez [facility] 1.2.840.114 350.1.13.10 4.2.7.2.686 [id number] 134 [id number] [facility] 2019-09-29 09:30:00 2019-09-29 09:30:00 Outpatient R YOUNG SÁNCHEZ [facility] [id number] [facility] 2019-09-23 00:00:00 2019-09-23 00:00:00 Telephone Jess [facility] 1.2.840.114 350.1.13.10 4.2.7.2.686 [id number] 134 [id number] [facility] 2019-09-16 00:00:00 2019-09-16 00:00:00 Patient Secure Msg Doctor Unassigned, [place] [facility] 1.284.114 350.1.13.10 4.2.7.2.686 [id number] 134 [id number] [facility] 2019-09-15 09:54:12 2019-09-15 10:09:12 Net Manager Visit Pob, Adc Lab Main Eder Mercado [facility] 1.2840.114 350.1.13.10 4.2.7.2.686 [id number] 353 [id number] [facility] 2019-09-15 08:58:38 2019-09-15 09:39:31 Routine Visit Eder Mercado [facility] 1.2840.114 350.1.13.10 4.2.7.2.686 [id number] 134 [id number] [facility] 2019-09-15 09:00:00 2019-09-15 09:00:00 Outpatient R JESS [facility] [id number] [facility] 2019-09-15 00:00:00 2019-09-15 00:00:00 Orders Only Doctor Unassigned, [place] [facility] 1.84.114 350.1.13.10 4.2.7.2.686 [id number] [facility] 2019-09-13 00:00:00 2019-09-13 00:00:00 Telephone Eder Mercado [facility] Building 1.2.840.114 350.1.13.10 4.2.7.2.686 [id number] 134 [id number] [facility] 2019-09-10 00:00:00 2019-09-10 00:00:00 [facility] 1.2.840.114 350.1.13.10 4.2.7.2.686 [id number] 134 [id number] [facility] 2019-09-07 00:00:00 2019-09-07 00:00:00 [facility] 1.2.840.114 350.1.13.10 4.2.7.2.686 [id number] 134 [id number] [facility] 2019-09-06 00:00:00 2019-09-06 00:00:00 [facility] 1.2.840.114 350.1.13.10 4.2.7.2.686 [id number] 134 [id number] [facility] 2019-09-06 00:00:00 2019-09-06 00:00:00 [facility]ill [facility] 1.2.840.114 350.1.13.10 4.2.7.2.686 [id number] 134 [id number] [facility] 2019-09-01 00:00:00 2019-09-01 00:00:00 Telephone [facility]der Mercado [facility] 1.2.840.114 350.1.13.10 4.2.7.2.686 [id number] 134 [id number] [facility] 2019-08-27 11:27:48 2019-08-27 11:42:48 Routine Visit Eder Mercado [facility] 1.2.840.114 350.1.13.10 4.2.7.2.686 [id number] 134 [id number] [facility] 2019-08-27 00:00:00 2019-08-27 00:00:00 Orders Only Doctor Unassigned, [place] [facility] 1.2.840.114 350.1.13.10 4.2.7.2.686 [id number] [facility] 2019-08-23 00:00:00 2019-08-23 00:00:00 Telephone Young Sánchez [facility] 1.2.840.114 350.1.13.10 4.2.7.2.686 [id number] 134 [id number] [facility] 2019-08-17 14:49:24 2019-08-17 15:42:09 Routine Visit Young Sánchez [facility] 1.2.840.114 350.1.13.10 4.2.7.2.686 [id number] 134 [id number] [facility] 2019-08-15 00:00:00 2019-08-15 00:00:00 Nurse Triage [facility] 1.2.840.114 350.1.13.10 4.2.7.2.686 [id number] [facility] 2019-08-11 00:00:00 2019-08-11 00:00:00 Nurse Triage [facility] 1.2.840.114 350.1.13.10 4.2.7.2.686 [id number] 019 [id number] [facility] 2019-08-10 00:00:00 2019-08-10 00:00:00 Telephone Eder Mercado [facility] 1.2.840.114 350.1.13.10 4.2.7.2.686 [id number] 134 [id number] [facility] 2019-04-08 00:00:00 2019-04-08 00:00:00 Telephone Young S[facility]chez [facility] 1.2.840.114 350.1.13.10 4.2.7.2.686 [id number] 134 [id number] [facility] 2019-04-07 00:00:00 2019-04-07 00:00:[address] [facility] PROCEDURES TECH [facility] 1.2.840.114 350.1.13.10 4.2.7.2.686 [id number] [facility] 2019-04-06 10:00:00 2019-04-06 23:59:00 Hospital Encounter Jeffrey Graves [facility] 1.2.840.114 350.1.13.10 4.2.7.2.686 [id number] [facility] 2019-04-06 00:00:00 2019-04-06 00:00:[address] [facility] PROCEDURES TECH [facility] 1.2.840.114 350.1.13.10 4.2.7.2.686 [id number] [facility] 2019-04-05 12:56:19 2019-04-05 13:41:09 Routine Visit Jeffrey Graves [facility] PROCEDURES TECH [facility] 1.2.840.114 350.1.13.10 4.2.7.2.686 [id number] 107 [id number] [facility] 2019-04-05 00:00:00 2019-04-05 00:00:[address] [facility] PROCEDURES TECH [facility] 1.2.840.114 350.1.13.10 4.2.7.2.686 [id number] 107 [id number] [facility] 2019-04-02 00:00:00 2019-04-02 00:00:[address] [facility] PROCEDURES TECH [facility] 1.2.840.114 350.1.13.10 4.2.7.2.686 [id number] 107 [id number] [facility] 2019-03-29 14:15:24 2019-03-29 16:25:51 Initial Visit Jeffrey Graves [facility] PROCEDURES TECH [facility] 1.2.840.114 350.1.13.10 4.2.7.2.686 [id number] 107 [id number] [facility] 2019-03-29 00:00:00 2019-03-29 00:00:00 Orders Only Doctor Unassigned, [place] [facility] 1.2.840.114 350.1.13.10 4.2.7.2.686 [id number] [id number] [facility] 2019-02-24 13:47:07 2019-02-24 14:45:47 Office Visit Mendy Adhikari [facility] PROCEDURES TECH [facility] 1.2.840.114 350.1.13.10 4.2.7.2.686 [id number] 107 [id number] [facility] 2019-02-24 00:00:00 2019-02-24 00:00:00 Orders Only Doctor Unassigned, [place] [facility] 1.2.840.114 350.1.13.10 4.2.7.2.686 [id number] [facility] Notes Date/Time Note Provider Source 2025-01-20 11:50:48 Per chart review - 11/23/2024 - Pt was to f/u with derm if problem persisted, sending pt MCM to verify. 5. Hidradenitis suppurativa - clindamycin 300 mg capsule; Take 1 capsule by mouth in the morning and 1 capsule in the evening. Do all this for 7 days. Dispense: 14 capsule; Refill: 0 - clindamycin 1 % gel; Apply to area(s) 2 (two) times daily. Dispense: 60 g; Refill: 0 Etiology and mgmt discussed with pt Will f/u with dermatology id persistent and bothersome Neelima Drew RN [facility] 2024-11-17 10:40:04 Name and verified. Pt state dthat she started cycle today and is heavy. Advised her that we should move appt to next week. Verbalized understanding. Appt moved. STACI HAJI RN 11/17/2024 10:40 AM Staci Haji RN [facility] 2024-11-17 10:25:31 The patient is experiencing a discharge accompanied by itching and abdominal cramps with a mild odor. She started her period, which is heavy. She would like to confirm if it is appropriate to come in for a visit today. Appt 11/16 Shaneka Pedraza [facility] 2024-11-15 13:41:48 PSS spoke with patient and got her scheduled on 11/17/2024 [address] Mrs. Christopher. [facility] 2024-11-15 13:18:08 Patient returning call from Ms. Sinha. Reached out to Susannah Ernestine who stated she will call patient right back. Lew Villagran [facility] 2024-11-15 12:58:51 Voicemail left for patient to return call. [facility] 2024-11-15 12:19:11 Yulisa Fowler is a 29 year old female Patient is returning missed call from nurse, but there are notes from previous call. Louie Hooks [facility] 2024-11-15 11:53:00 Yulisa Fowler is a 29 year old female Pt calling to speak with Nurse regarding green d/c and itching x 2 weeks. Unable to come in for an appt until later this week. No appts past Fri at this location. Would like a return call. Thank you Maryanne Mcdowell [facility] 2024-06-14 15:34:39 Name and verified. Pt wanted to see if there was any OTC treatment for her discharge. Advised pt since she is having green discharge, she will need to be seen. Pt stated that she will need to make an appt after Friday and in Jun. Appt made. STACI HAJI RN 06/14/2024 3:45 PM ER WINDER Staci Haji RN [facility] 2024-06-14 15:14:06 Yulisa Fowler is a 28 year old female Patient is returning call. ER WINDER Tiana Giron [facility] 2024-06-14 08:18:55 Attempted to reach pt, no answer, left a vm Becky Morales RN 06/14/2024 8:18 AM ER WINDER Becky Morales RN [facility] 2024-06-14 07:55:15 Patient requesting to speak to nurse, states she is unable to make today's copay and must reschedule but is dealing with a possible infection. Requesting a VM be left for her and she'll call back Please F/u ER WINDER Mati Schmid [facility] 2024-05-18 15:22:40 Spoke to patient this was about mychart messaged about getting patient scheduled was not about lab results. She is aware of her appointment. Yamileth Faye [facility] 2024-05-18 15:14:04 Pt returned call to discuss recent lab results Juani Harrison [facility] 2024-03-16 16:53:06 Contacted patient regarding results and recommendations from the provider. Patient verbalized understanding. Patient states she will call back to make appointment for SILVINA. Devyn Ruffin RN 03/16/2024 4:55 PM Devyn Ruffin RN [facility] 2024-03-15 15:10:40 Pt called states she can be reached at the number on her chart [phone] to discuss results. Nesha Richmond [facility] 2024-03-15 11:47:19 is not a working number. Attempt x 2. Spotsterhart message sent to confirm telephone number. Valeria Noriega MA [facility] 2024-03-15 11:39:41 Pt returning a call. Pls call patient at [phone] Shaneka Pedraza [facility] 2024-03-15 11:06:38 Attempted to contact patient by phone to provide test results, no answer, message left on voicemail to call back. [facility] 2024-03-15 10:34:27 Images from the original note were not included. Pt would like to receive a call regarding the my chart test result, she would like someone to explain to her the results T [facility] 2024-02-27 12:27:56 Name and verified. Appt made for Friday. STACI HAJI RN 02/27/2024 12:28 PM Staci Haji RN [facility] 2024-02-27 09:32:02 ATC pt at [phone]. No answer. Spotsterhart message sent. STACI HAJI RN 02/27/2024 9:32 AM [facility] 2024-02-26 16:01:27 Pt calling again to request a call regarding symptoms. Kathi Pitts [facility] 2024-02-26 11:35:38 Patient returning phone call for assessment. Please call work number [phone]. Jackie Ryan Sung [facility] 2024-02-25 16:30:06 Voicemail left for patient to return call. [facility] 2024-02-25 14:04:33 Pt is having green discharge and irritation for a few weeks. There is no 48 hour appointment. Please assist. Louie Hooks [facility] 2023-11-17 13:47:43 Name and verified. Pt stated that she missed a dose and if it was okay to take it when she gets home. I advised her to continue medication. If s/s persist- to call office. Verbalized understanding. STACI HAJI RN 11/17/2023 1:49 PM Staci Haji RN [facility] 2023-11-17 13:21:33 Pt has question about med that was prescribed. Yamileth Faye [facility] 2023-11-11 10:34:40 See result note. STACI HAJI RN 11/11/2023 10:34 AM Staci Haji RN [facility] 2023-11-06 10:28:54 Rx for flagyl sent. [facility] 2023-10-31 14:41:34 Spoke with Phyllis Osman. Patient must be seen in office. Patient advised she needs to be seen. Patient scheduled for appointment 11/04/23. Devyn Ruffin RN 10/31/2023 2:42 PM Devyn Ruffin RN [facility] 2023-10-31 13:36:15 Patient states medication is not helping her symptoms. Please call back at work at [phone]. T [facility] 2023-10-22 16:54:04 Per Phyllis, may take Boric acid vaginally every night up to 2 weeks. Send a refill of Diflucan. Per provider, partner, needs to get seen and treated or she will continue to have symptoms. Name and verified. Pt advised understanding. Partner has not been treated. STACI HAJI RN 10/22/2023 4:55 PM T [facility] 2023-10-22 13:56:36 Patient states she is done with medication but is still having the same symptoms. She is requesting another prescription. She is requesting a call back at work at [phone]. [facility] 2023-10-13 15:08:18 Patient states the medication that she was given is not helping her symptoms. T [facility] 2023-10-09 08:42:35 Called pt verified and full name with DOS. Informed pt about STD test result. Informed pt that result is positive for Trichomonas (caused by parasite) and M. Genitalium (bacterial infection). Advised pt to inform partner to f/u with their provider for treatment and testing. HIV/RPR/Hep B/C recommended with SILVINA We recommend that you abstain from sexual encounters for 7 days and return to clinic in about 2-3 months to retest. Condom use is encouraged to reduce future infections. Verbalized understanding. Pharmacy and allergy verified. Rx sent T [facility] 2023-10-07 11:30:00 Addended by: LIZ VENTURA on: 10/08/2023 11:39 AM Modules accepted: Orders T Liz Ventura [facility] 2023-08-19 13:56:27 Returned call to pt regarding concerning sx. Pt's name and both verified. Pt c/o green vaginal discharge, foul odor, itching and burning x 7 days. Pt is sexually active with 1 partner, denies using condoms. Pt states she's extremely uncomfortable. Pt states she can do self pay for visit tomorrow. Appt made in for testing and tx at 10AM. Strongly advised pt to abstain from intercourse until further indicated. Pt verbalized understanding. ER WINDER Valeria Noriega MA [facility] 2023-08-19 13:43:12 Pt having vaginal green discharge and itching, offered appt says she does not have insurance or able to pay for visit. Want to discuss what she can take otc. Call her at work [phone] ER WINDER Yamileth Faye [facility]
[2025-03-09 21:36] LABS: Influenza A Ag Negative; Influenza B Ag Negative; SARS-CoV-2 Antigen Rapid Res Positive (Negative)
--- NOTE | 2025-03-10 00:58 | EDPHYS ---
Physician Documentation [facility] Name: Yulisa Fowler Age: 29 yrs Sex: Female : 1995 Arrival Date: 03/09/2025 Time: 20:59 Bed 11 Private MD: ED Physician Ba Lucio HPI: 03/09 21:15 This 29 yrs old Black Female presents to ER via Ambulatory with complaints of Flu kb Symptoms. 21:15 Pt is a 29 year old female who presents for cough, congestion, chills, and bodyaches kb that started yesterday. denies n/v/d. Probable fever, but didn't check her temperature. . Historical: - Allergies: 21:09 No Known Allergies; ha1 - PMHx: 21:09 None; ha1 - PSHx: 21:09 None; ha1 - Immunization history:: Adult Immunizations unknown. - Infectious Disease History:: Denies. - Social history:: Smoking status: Patient denies any tobacco usage or history of. ROS: 21:16 Constitutional: As per HPI kb Exam: 21:16 Constitutional: This is a well developed, well nourished patient who is awake, alert, kb and in no acute distress. Head/Face: Normocephalic, atraumatic. ENT: Moist Mucous membranes Cardiovascular: Regular rate Respiratory: Respirations even and unlabored. No increased work of breathing. Talking in full sentences Skin: Warm, dry with normal turgor. Normal color. MS/ Extremity: Pulses equal, no cyanosis. Neurovascular intact. Full, normal range of motion. Neuro: Awake and alert, GCS 15, oriented to person, place, time, and situation. Vital Signs: 21:08 BP 136 / 105; Pulse 83; Resp 17 S; Temp 97.6(O); Pulse Ox 100% on R/A; Weight 74.84 kg; ha1 Height 5 ft. 5 in. ; 21:52 BP 129 / 90; Pulse 85; Resp 16; Temp 98.1; Pulse Ox 100% on R/A; dd2 21:08 Body Mass Index 27.46 (74.84 kg, 165.1 cm) ha1 [place] Coma Score: 21:21 Eye Response: spontaneous(4). Motor Response: obeys commands(6). Verbal Response: dd2 oriented(5). Total: 15. MDM: 21:08 Medical Screening Exam initiated kb 21:37 Differential diagnosis: flu, covid, uri. Data reviewed: vital signs, nurses notes. I kb considered the following discharge prescriptions or medication management in the emergency department I discussed and recommended Over The Counter medications, Antibiotics: At this time antibiotics are not recommended. Counseling: I had a detailed discussion with the patient and/or guardian regarding the historical points, exam findings, and any diagnostic results supporting the discharge/admit diagnosis, lab results, the need for outpatient follow up, a family practitioner, to return to the emergency department if symptoms worsen or persist or if there are any questions or concerns that arise at home. Administered Medications: No medications were administered Disposition: 03/10 01:16 Co-signature as Attending Physician, Ba Lucio MD I agree with the assessment sp4 and plan of care. I reviewed the patient's care provided by the Advanced Practice Provider and agree with the diagnosis and treatment plan. Disposition Summary: 03/09/25 21:38 Discharge Ordered Notes: Location: Home kb Condition: Stable kb Diagnosis - SARS-associated coronavirus as the cause of diseases classified elsewhere kb Followup: kb - With: Emergency Department - When: As needed - Reason: Worsening of condition Followup: kb - With: Private Physician - When: 2 - 3 days - Reason: Recheck today's complaints, Continuance of care, Re-evaluation by your physician Discharge Instructions: - Discharge Summary Sheet kb - COVID-19 kb - Viral Illness, Adult kb Forms: - Work release form kb - Medication Reconciliation Form kb - Antibiotic Education kb - Prescription Opioid Use kb - Patient Portal Instructions kb - Leadership Thank You Letter kb Signatures: Candie Carter FNP-C FNP-Veronica Gongora, RN RN ha1 Ba Lucio MD MD sp4
--- NOTE | 2025-03-10 00:58 | ER ---
Nurse's Notes [facility] Name: Yulisa Fowler Age: 29 yrs Sex: Female : 1995 Arrival Date: 03/09/2025 Time: 20:59 Bed 11 Private MD: Diagnosis: SARS-associated coronavirus as the cause of diseases classified elsewhere Presentation: 03/09 21:08 Chief complaint: Patient states: HEADACHE, BODY ACHE AND CHILLS, COUGH. Coronavirus ha1 screen: Client denies travel out of the [place] in the last 14 days. Ebola Screen: No symptoms or risks identified at this time. Initial Sepsis Screen: Does the patient meet any 2 criteria? No. Patient's initial sepsis screen is negative. Does the patient have a suspected source of infection? No. Patient's initial sepsis screen is negative. Risk Assessment: Do you want to hurt yourself or someone else? Patient reports no desire to harm self or others. Onset of symptoms was March 09, 2025. 21:08 Method Of Arrival: Ambulatory ha1 21:08 Acuity: DEE 4 ha1 Triage Assessment: 21:09 General: Appears uncomfortable, Behavior is calm, cooperative. Pain: Complains of pain ha1 in BODY ACHES Pain currently is 5 out of 10 on a pain scale. Neuro: Level of Consciousness is awake, alert, obeys commands, Oriented to person, place, time, situation. Cardiovascular: Capillary refill < 3 seconds Patient's skin is warm and dry. Respiratory: Airway is patent Respiratory effort is even, unlabored, Respiratory pattern is regular, symmetrical. GI: No signs and/or symptoms were reported involving the gastrointestinal system. Abdomen is round non-distended. : No signs and/or symptoms were reported regarding the genitourinary system. Derm: Skin is normal. Musculoskeletal: Circulation, motion, and sensation intact. Range of motion: intact in all extremities. Historical: - Allergies: 21: No Known Allergies; ha1 - PMHx: 21: None; ha1 - PSHx: 21: None; ha1 - Immunization history:: Adult Immunizations unknown. - Infectious Disease History:: Denies. - Social history:: Smoking status: Patient denies any tobacco usage or history of. Screenin: [facility] ED Fall Risk Assessment (Adult) History of falling in the last 3 months, dd2 including since admission No falls in past 3 months (0 pts) Confusion or Disorientation No (0 pts) Intoxicated or Sedated No (0 pts) Impaired Gait No (0 pts) Mobility Assist Device Used No (0 pt) Altered Elimination No (0 pt) Score/Fall Risk Level 0 - 2 = Low Risk Oriented to surroundings, Maintained a safe environment, Educated pt \T\ family on fall prevention, incl call for assistance when getting out of bed, Assessed \T\ reinforced patient's understanding of fall precautions, Hourly rounding (assess needs \T\ fall precautionary measures) done. Abuse screen: Denies threats or abuse. Denies injuries from another. Nutritional screening: No deficits noted. Tuberculosis screening: No symptoms or risk factors identified. Assessment: 21:21 General: Appears in no apparent distress. uncomfortable, Behavior is calm, cooperative, dd2 appropriate for age. Pain: Complains of pain in general body. Neuro: Reports headache. Cardiovascular: No deficits noted. Respiratory: Reports cough that is productive, Airway is patent Respiratory effort is even, unlabored, Respiratory pattern is regular, symmetrical, Breath sounds are clear bilaterally. GI: No deficits noted. No signs and/or symptoms were reported involving the gastrointestinal system. : No deficits noted. No signs and/or symptoms were reported regarding the genitourinary system. EENT: Nares are clear Reports nasal congestion nasal discharge. Derm: No deficits noted. No signs and/or symptoms reported regarding the dermatologic system. Musculoskeletal: No deficits noted. No signs and/or symptoms reported regarding the musculoskeletal system. Circulation, motion, and sensation intact. Range of motion: intact in all extremities. Vital Signs: 21:08 BP 136 / 105; Pulse 83; Resp 17 S; Temp 97.6(O); Pulse Ox 100% on R/A; Weight 74.84 kg; ha1 Height 5 ft. 5 in. ; 21:52 BP 129 / 90; Pulse 85; Resp 16; Temp 98.1; Pulse Ox 100% on R/A; dd2 21:08 Body Mass Index 27.46 (74.84 kg, 165.1 cm) ha1 [place] Coma Score: 21:21 Eye Response: spontaneous(4). Motor Response: obeys commands(6). Verbal Response: dd2 oriented(5). Total: 15. ED Course: 21:02 Patient arrived in ED. gm2 21:07 Candie Carter FNP-C is [facility]. kb 21:07 Ba Lucio MD is Attending Physician. kb 21:09 Triage completed. ha1 21:21 Patient has correct armband on for positive identification. Bed in low position. Call dd2 light in reach. Client placed on continuous cardiac and pulse oximetry monitoring. NIBP monitoring applied. Door closed. Noise minimized. Warm blanket given. Pillow given. Verbal reassurance given. 21:21 No provider procedures requiring assistance completed. COVID swab sent to lab. Flu dd2 and/or RSV swab sent to lab. Patient did not have IV access during this emergency room visit. Patient maintains SpO2 saturation greater than 95% on room air. 21:52 Provided Education on: d/c education. dd2 Administered Medications: No medications were administered Medication: 21:21 VIS not applicable for this client. dd2 Outcome: 21:38 Discharge ordered by MD. kb 21:52 Discharged to home ambulatory, dd2 21:52 Condition: stable 21:52 Discharge instructions given to patient, Instructed on discharge instructions, follow up and referral plans. Demonstrated understanding of instructions, follow-up care, 21:54 Patient left the ED. dd2 Signatures: Candie Carter FNP-C FNP-Veronica Gongora, RN RN 1 Karissa Iniguez gm2 ALLAN ALFORD RN RN dd2
[2025-03-10 06:25] VITALS: O2SAT 100
[2025-03-10 06:27] VITALS: BP 129/90; TEMP 98.1
== END 2025-03-09 21:54 | disposition home or self-care (01) ==
LOC: ER 20:59
DX: U07.1 COVID-19 (principal)
CPT/HCPCS: 36415; 87428